=== PATIENT | female | born 1945 | race Caucasian/White ===

== ENCOUNTER → 2019-08-29 07:43 | Outpatient (BNVA) | payer MEDICARE, MEDICAID, SELFPAY | PROVIDERS: Family Provider Family Medicine; Visit Provider Nurse Practitioner Psychiatric/Mental Health | DX: F33.0 Major depressive disorder, recurrent, mild (principal) | CPT/HCPCS: 99213 ==

== ENCOUNTER → 2020-02-27 07:38 | Outpatient (BNVA) | payer MEDICARE, MEDICAID, SELFPAY | PROVIDERS: Family Provider Family Medicine; Visit Provider Nurse Practitioner Psychiatric/Mental Health | DX: F33.0 Major depressive disorder, recurrent, mild (principal) | CPT/HCPCS: 99213 ==

== ENCOUNTER → 2020-08-13 07:28 | Outpatient (BNVA) | payer MEDICARE, MEDICAID, SELFPAY | PROVIDERS: Family Provider Family Medicine; Visit Provider Nurse Practitioner Psychiatric/Mental Health | DX: F33.0 Major depressive disorder, recurrent, mild (principal) | CPT/HCPCS: 99213 ==

== ENCOUNTER 2020-11-02 12:45 | Outpatient (CLI) | payer MEDICARE, MEDICAID, SELFPAY ==
--- NOTE | 2020-11-02 12:51 | MM_ITS ---
WS: [id number] BILATERAL SCREENING DIGITAL MAMMOGRAM WITH CAD HISTORY: SCREENING COMPARISON: 08/30/2018 and 09/08/2016 Bilateral CC and MLO views submitted. Computer aided detection analyzed. Breast composition: There are scattered areas of fibroglandular density. No suspicious masses, microc alcifications or architectural distortion. Benign calcifications in each breast. MM/[place] [id number] IMPRESSION: BI-RADS: 2-Benign FOLLOW UP: 1 Year Follow-up
== END 2020-11-02 12:46 | disposition home or self-care (01) ==
LOC: RADSHAW 12:49
PROVIDERS: Family Provider Family Medicine; PCP Family Medicine; Visit Provider Family Medicine
DX: Z12.31 Encounter for screening mammogram for malignant neoplasm of breast (principal)
CPT/HCPCS: 77067

== ENCOUNTER 2020-11-30 09:10 | Observation (INO) | payer MEDICARE, MEDICAID, SELFPAY ==
[2020-11-30] VITALS (8 sets, daily range): BP systolic 107–141; BP diastolic 44–75; PULSE 75–84; RESP 16–18; TEMP 36.9–37.4; O2SAT 91–95; BMI 48.0
--- NOTE | 2020-11-30 09:21 | CT_ITS ---
WS: [id number] CT abdomen pelvis w con* [id number] REASON FOR EXAM: abd pain IV CONTRAST ADMINISTERED: 95 mL of Omnipaque 300. TOTAL EXAM DLP: 1892.[address] scans at [facility] use at least one of these dose optimization techniques: automat ed exposure control; mA and/or kV adjustment per patient size (includes targeted exams where dose is matched to clinical indication); or iterative reconstruction. FINDINGS: ABDOMEN: The spleen and pancreas are within normal limits. Mild fatty infiltration of the liver. No focal liver lesion. The gallbladder demonstrates an irregular and edematous appearing wall with hazy density in the adjac ent fat and possibly a very small amount of pericholecystic fluid. There are multiple large calculi p resent. The calculi are partially calcified. The adrenals and kidneys are unremarkable. In addition there is air in the common bile duct which extends up the biliary tract into the intrahep atic radicles of the most superior medial left lobe of the liver. In retrospect there was likely some shadowing in the left lobe of the liver that represented air within the intrahepatic bile ducts. No mass, adenopathy, focal fluid collection, or free fluid. No bowel abnormality is identified. A normal appendix is not identified. No inflammatory changes or f luid in the right lower quadrant. The abdominal wall is intact. Degenerative changes in the lumbar spine without focal lesion. PELVIS: No mass, adenopathy, focal fluid collection, or free fluid. Mild thickening of the urinary bladder wall. The urinary bladder is otherwise unremarkable. The uterus is been removed. CT/CT abdomen pelvis w con* [id number] IMPRESSION: Cholelithiasis with acute cholecystitis. Pneumobilia. Presuming no recent surgery in the ampullary region or recent ERCP this would likely be due to the recent passage of a gallbladder calculus into the GI tract. No calculus was identified in the GI tract however the gallstones are poorly calcified and would be difficult to identify in bowel unless extrem aurora large. Malignancy in the region of the ampulla could produce these findings however no mass in that region is identified.
--- NOTE | 2020-11-30 09:21 | ECG_ITS ---
[facility] ED Test Date: 2020-11-30 Pat Name: Katie Haddad Department: Room: Gender: Female Administrative Accountant: : [id number] Requested By: Miguel Robledo Order Number: [id number] Yana MD: Tamy Melendez M.D. Measurements Intervals [place] Rate: 84 P: 48 RI: 137 QRS: -18 QRSD: 97 T: 12 QT: 339 QTc: 402 Interpretive Statements SINUS RHYTHM Compared to ECG 02/20/2019 15:03:46 Incomplete right bundle-branch block no longer present Atrial abnormality no longer present ST (T wave) deviation no longer present Electronically Signed On 12-03-2020 0:18:06 CDT by Tamy Melendez M.D. [id number]
--- NOTE | 2020-11-30 09:50 | US_ITS ---
WS: [id number] ABDOMINAL ULTRASOUND LIMITED REASON FOR VISIT: abd pain TECHNIQUE: Grayscale and Doppler ultrasound examination of the abdomen. FINDINGS: Pancreas: Not visualized due to the large amount of overlying bowel gas. Abdominal aorta and IVC: Normal Liver: Liver measures 17.5 cm in length. Moderately echogenic compatible with fatty infiltration. Gallbladder: Gallbladder wall thickness measures 0.5 mm. The thickening of the gallbladder wall with a triple layer appearance compatible with edema of the gallbladder wall. There is also hyperemia of t he gallbladder wall. There are multiple large calculi in the gallbladder as well as a large amount of dependently layering debris. The common bile duct is not dilated. Questionable; small amount of taty cholecystic fluid. Right kidney: Right kidney measures 12.9 cm x 4.3 cm x 4.4 cm. Right kidney cortex measures 1.3 cm. N o mass, calculus, or hydronephrosis. No ascites. US/US gall bladder [id number] IMPRESSION: Cholelithiasis with findings indicative of acute cholecystitis.
--- NOTE | 2020-11-30 09:51 | W.ED.ABDPA2 ---
HPI - Abdominal Pain General: Chief Complaint: Abdominal Pain Stated Complaint: UPPER ABD PAIN Time Seen by Provider: 11/30/20 09:15 History of Present Illness: HPI narrative: 75-year-old female presents emergency room chronic right upper quadrant abdominal pain she had for the last 2 days. She is not had any fevers or chills she has had some nausea has had some alteration in taste. She has been very nauseous she is not had any diarrhea. She denies cough. She has not been vaccinated to this point. MD elicited complaint: abdominal pain Pertinent past history: none Onset (ago): hour(s) Pain Consistency: constant Location: Diffuse Severity: moderate Quality: cramping Radiation: none Migration to: no migration Exacerbating factors: nothing Relieving factors: nothing Associated Symptoms: Reports bloating, change in bowel habits, GI cramping, nausea and poor appetite; Denies anorexia, belching, change in stool character, chills, coffee ground emesis, constipation, diarrhea, dyspepsia, dysuria, excessive flatus, fever(s), heartburn, hematochezia, hematuria, hematemesis, fecal incontinence, loose stools, melena, syncope and vomiting Review of Systems Const: Denies: fever(s) or chills ENMT: Denies: throat pain, ear or mastoid pain, nasal discharge or nasal congestion Card: Denies: syncope Resp: Denies: dyspnea, productive cough or non-productive cough GI: Reports: nausea, bloating, GI cramping and change in bowel habits; Denies: vomiting, hematemesis, coffee ground emesis, heartburn, diarrhea, constipation, belching, excessive flatus, fecal incontinence, change in stool character, hematochezia or melena : Denies: dysuria or hematuria Skin/Breast: Denies: rash or pruritus PFSH ED PFSH: Medical History HTN (hypertension) Major depressive disorder, recurrent, mild Social History Smoking and tobacco status: never smoked Alcohol intake: never Physical Exam Const: COMMON NORMALS: no acute distress GENERAL APPEARANCE: cooperative and comfortable ORIENTATION/CONSCIOUSNESS: Yes awake, Yes oriented to person, Yes oriented to place and Yes oriented to time HENMT: COMMON NORMALS: normocephalic, atraumatic and hearing grossly normal bilaterally HEAD & SCALP: normocephalic and atraumatic Neck/C-Spine: COMMON NORMALS: no JVD Resp: COMMON NORMALS: normal respiratory effort, No retractions, No use of accessory muscles and clear to auscultation bilaterally AUSCULTATION: clear to auscultation bilaterally Cardio: COMMON NORMALS: no JVD, regular rate, regular rhythm and No murmurs present (Cardio) RATE: regular rate RHYTHM: regular rhythm GI: COMMON NORMALS: No hepatosplenomegaly present AUSCULTATION: Yes normoactive bowel sounds PALPATION: Yes Tenderness to palpation present (GI) Details: RUQ, No Guarding due to palpation present (GI) and Yes No hepatosplenomegaly present Extremity: COMMON NORMALS: normal to inspection, capillary refill normal, no clubbing, cyanosis or edema, no calf tenderness and no pedal edema Neuro: SENSORIUM/ORIENTATION: Yes oriented to person, Yes oriented to place and Yes oriented to time Skin: COMMON NORMALS: no rashes or lesions noted GENERAL SKIN EXAM: no rashes or lesions noted Course Vital Signs: Vital signs: Vital Signs Temperature 98.2 F 12/01/20 11:43 Pulse Rate 68 12/01/20 11:43 Respiratory Rate 18 12/01/20 11:43 Blood Pressure 148/81 12/01/20 11:43 Pulse Oximetry 94 12/01/20 11:43 MDM - Abdominal Pain MDM Narrative: Medical decision making narrative: Ultrasound shows signs of cholelithiasis with no dilation of the common bile duct CT still pain discussed Dr. Parra her admission orders Lab Data: Labs: Lab Results 11/30/20 11/30/20 11/30/20 Range/Units 09:52 09:52 10:05 WBC 14.7 H (4.0-10.0) 10^3/ uL RBC 4.78 (4.1-5.3) 10^6/u L Hgb 14.5 (11.5-15.3) g/dL Hct 43.3 (37.0-47.0) % MCV 90.6 (81-99) fL MCH 30.3 (28.0-34.0) pg MCHC 33.5 (30.0-36.0) g/dL RDW 13.2 (12.1-15.1) % Plt Count 192 (130-400) 10^3/c mm MPV 10.9 H (7.4-10.4) fL Neut % (Auto) 84.6 % Lymph % (Auto) 7.4 % [place] % (Auto) 7.5 % Eos % (Auto) 0.0 % Baso % (Auto) 0.3 % Neut # (Auto) 12.48 H (1.8-7.7) 10^3/u L Lymph # (Auto) 1.1 (0.8-4.8) 10^3/u L [place] # (Auto) 1.1 H (0.2-0.9) 10^3/u L Eos # (Auto) 0.0 (0.0-0.8) 10^3/u L Baso # (Auto) 0.0 (0.0-0.1) 10^3/u L Nucleated RBC % (a uto) 0 % Nucleated RBCs # 0.0 /100WBC Sodium Cancelled Potassium Cancelled Chloride Cancelled Carbon Dioxide Cancelled Anion Gap Cancelled BUN Cancelled Creatinine Cancelled GFR Calculation Cancelled Glucose Cancelled Calculated Osmolal ity Cancelled Calcium Cancelled Total Bilirubin Cancelled AST Cancelled ALT Cancelled Alkaline Phosphata se Cancelled Creatine Kinase Cancelled Total Protein Cancelled Albumin Cancelled Globulin Cancelled Lipase Cancelled Urine Color (Yellow) Urine Appearance (CLEAR) Urine pH (5-7) Ur Specific Gravit y (1.005-1.030) Urine Protein (Negative) Urine Glucose (UA) (Normal) Urine Ketones (Negative) Urine Blood (Negative) Urine Nitrate (Negative) Urine Bilirubin (Negative) Prot Sulfosalicyli c Acd (Negative) Urine Urobilinogen (Negative) mg/dL Ur Leukocyte Deisy ase (Negative) Urine RBC (0-2) /hpf Urine WBC (0-5) /hpf Ur Squamous Epith Cells (0-5) /hpf Amorphous Sediment Urine Bacteria (NONE) /hpf Urine Mucus /hpf SARS-CoV-2 Ag (Rap id) Negative (Negative) 11/30/20 11/30/20 Range/Units 10:50 11:00 WBC (4.0-10.0) 10^3/ uL RBC (4.1-5.3) 10^6/u L Hgb (11.5-15.3) g/dL Hct (37.0-47.0) % MCV (81-99) fL MCH (28.0-34.0) pg MCHC (30.0-36.0) g/dL RDW (12.1-15.1) % Plt Count (130-400) 10^3/c mm MPV (7.4-10.4) fL Neut % (Auto) % Lymph % (Auto) % [place] % (Auto) % Eos % (Auto) % Baso % (Auto) % Neut # (Auto) (1.8-7.7) 10^3/u L Lymph # (Auto) (0.8-4.8) 10^3/u L [place] # (Auto) (0.2-0.9) 10^3/u L Eos # (Auto) (0.0-0.8) 10^3/u L Baso # (Auto) (0.0-0.1) 10^3/u L Nucleated RBC % (a uto) % Nucleated RBCs # /100WBC Sodium Cancelled Potassium Cancelled Chloride Cancelled Carbon Dioxide Cancelled Anion Gap Cancelled BUN Cancelled Creatinine Cancelled GFR Calculation Cancelled Glucose Cancelled Calculated Osmolal ity Cancelled Calcium Cancelled Total Bilirubin Cancelled AST Cancelled ALT Cancelled Alkaline Phosphata se Cancelled Creatine Kinase Cancelled Total Protein Cancelled Albumin Cancelled Globulin Cancelled Lipase Cancelled Urine Color Yellow (Yellow) Urine Appearance Clear (CLEAR) Urine pH 8 H (5-7) Ur Specific Gravit y 1.005 (1.005-1.030) Urine Protein Neg (Negative) Urine Glucose (UA) Norm (Normal) Urine Ketones Negative (Negative) Urine Blood 2+ H (Negative) Urine Nitrate Negative (Negative) Urine Bilirubin Neg (Negative) Prot Sulfosalicyli c Acd Negative (Negative) Urine Urobilinogen Norm (Negative) mg/dL Ur Leukocyte Deisy ase Negative (Negative) Urine RBC 0-4 H (0-2) /hpf Urine WBC None (0-5) /hpf Ur Squamous Epith Cells 0-4 H (0-5) /hpf Amorphous Sediment Not Reportable Urine Bacteria Trace (NONE) /hpf Urine Mucus Trace /hpf SARS-CoV-2 Ag (Rap id) (Negative) Discharge Plan Discharge Patient Disposition: Admitted As Inpatient Admit Provider: Librado Parra Condition: Stable Coding Level of Care Code ED Education Program Manager for Chg Fwd Exam Comprehensive
[2020-11-30 10:02] LABS: Basophils % 0.3 %; Hematocrit 43.3 % (37.0-47.0); Hemoglobin 14.5 g/dL (11.5-15.3); Lymphocytes # 1.1 10^3/uL (0.8-4.8); Lymphocytes % 7.4 %; Mean Corpuscular HGB Conc 33.5 g/dL (30.0-36.0); Mean Corpuscular Hemoglobin 30.3 pg (28.0-34.0); Mean Corpuscular Volume 90.6 fL (81-99); Mean Platelet Volume 10.9 fL (7.4-10.4); Monocytes # 1.1 10^3/uL (0.2-0.9); Monocytes % 7.5 %; Neutrophils # 12.48 10^3/uL (1.8-7.7); Neutrophils % 84.6 %; Nucleated Red Blood Cells % 0 %; Platelet Count 192 10^3/cmm (130-400); Red Blood Count 4.78 10^6/uL (4.1-5.3); Red Cell Distribution Width 13.2 % (12.1-15.1); White Blood Count 14.7 10^3/uL (4.0-10.0)
[2020-11-30 10:55] LABS: SARS Covid-2 Antigen Negative (Negative)
[2020-11-30 11:15] LABS: Add Urine Microscopic? YES; Bilirubin Urine Neg (Negative); Blood Urine 2+ (Negative); Glucose Urine UA Norm (Normal); Ketones Urine Negative (Negative); Leukocyte Esterase Urine Negative (Negative); Nitrate Urine Negative (Negative); Protein Urine Neg (Negative); Specific Gravity, Urine 1.005 (1.005-1.030); Sulfosalicylic Acid Urine Negative (Negative); Urine Appearance Clear (CLEAR); Urine Color Yellow (Yellow); Urobilinogen Urine Norm (Negative); pH Urine 8 (5-7)
[2020-11-30 11:21] LABS: Add Urine Culture? No; Bacteria Urine TRACE /hpf; Mucus Urine TRACE /hpf; RBC Urine 0-4 /hpf (0-2); Squamous Epithelial Cell Urine 0-4 /hpf (0-5)
[2020-11-30] MEDS: sodium chlor 0.9% + KCl 20 mEq 20 MEQ/1,000 ML BAG 125 MEQ IV ×2 (12:21→22:07)
[2020-11-30] MEDS: piperacillin-tazobactam 3.375 GM in sodium chloride 0.9% (plus) 50 ML IV ×2 (12:22→18:09)
[2020-11-30] MEDS: iohexol 300 mg/mL 100 mL Btl IV (13:07)
[2020-11-30 13:51] LABS: Alanine Aminotransferase 15 U/L (0-33); Albumin Level 2.6 g/dL (3.5-5.2); Alkaline Phosphatase 62 IU/L (35-105); Blood Urea Nitrogen 9 mg/dL (8-23); Calcium 8.1 mg/dL (8.5-10.5); Carbon Dioxide 22 mmol/L (22-29); Chloride 96 mmol/L (98-107); Creatine Phosphokinase 109 U/L (26-192); Creatinine Clr Calc Pharmacy 81.4447; Globulin 4.1 g/dL (1.3-4.6); Glucose 110 mg/dL (65-115); Lipase 11 U/L (13-60); Osmolality Calculated 269 mOsm/kg (285-295); Sodium 130 mmol/L (136-145); Total Bilirubin 0.8 mg/dL (0.15-1.2); Total Protein 6.7 g/dL (6.6-8.7)
[2020-11-30 13:54] LABS: Anion Gap 16.1 (5-19); Aspartate Amino Transferase 18 U/L (0-32); Potassium 4.1 mmol/L (3.5-5.1)
--- NOTE | 2020-11-30 15:02 | PC.NURSE ---
pt transported via bed to room 253-1.
--- NOTE | 2020-11-30 16:14 | P.HP_ITS ---
Providers/Chief Complaint Admitting Physician: Librado Parra MD Primary Care Provider: Pari Grijalva MD Chief Complaint: UPPER ABD PAIN History of Present Illness Chief Complaint: Abdominal pain History of present illness:Ms Katie Haddad is a pleasant 75 year old female patient presents to the emergency department with worsening right upper quadrant abdominal pain that started yesterday associated with nausea but no vomiting, patient describes her pain is more dull aching towards the right upper quadrant and being referred to the back. She denies history of fevers chills or jaundice. Patient was told before 2 years that she required an ERCP. But unfortunately she did not go through the process as she has been worked up in the emergency department and an ultrasound of the liver and gallbladder was obtained that showed cholelithiasis with findings of acute cholecystitis with measurement of the gallbladder wall 5 mm with multiple large calculi in the gallbladder, the common bile duct is nondilated. This study was followed by CT scan of the abdomen and pelvis; Cholelithiasis with acute cholecystitis. Pneumobilia. Presuming no recent surgery in the ampullary region or recent ERCP this would likely be due to the recent passage of a gallbladder calculus into the GI tract. No calculus was identified in the GI tract however the gallstones are poorly calcified and would be difficult to identify in bowel unless extremely large. Malignancy in the region of the ampulla could produce these findings however no mass in that region is identified. Initially when I was consulted the findings of the ultrasound was shared by me later on I did realize that the CT scan findings were reported which raises concern to me about the indication for MRCP. ER team was under the impression that the patient was supposed to get an ERCP in the past but she did not, patient now tells me that she got an ERCP but she was supposed to be with her gallbladder and she did not have it. Patient currently denies abdominal pain Review of Systems General: Reports: 10 or more systems reviewed and unremarkable except in HPI and below Medications/Allergies Home Medications Medication Instructions Recorded Confirmed Last Taken Type atorvastatin 10 mg tablet 10 mg PO DAILY 02/09/20 11/30/20 11/23/20 History triamterene 37.5 1 tab PO DAILY 02/09/20 11/30/20 11/29/20 History mg-hydrochlorothiazide 25 mg tablet Wellbutrin XL 150 mg PO DAILY 0711/30/20 11/29/20 History gabapentin 100 mg PO BID 11/30/20 11/30/20 11/29/20 History montelukast 10 mg PO DAILY 11/30/20 11/30/20 11/29/20 History omeprazole 40 mg PO DAILY 11/30/20 11/30/20 11/23/20 History Allergies Allergy/AdvReac Type Severity Reaction Status Date / Time No Known Allergies Allergy Verified 11/30/20 17:07 PFSH Acute PFSH: Medical History (Updated 11/30/20 @ 17:08 by Librado Parra MD) HTN (hypertension) Major depressive disorder, recurrent, mild Social History Smoking and tobacco status: never smoked Alcohol intake: never Vitals/I&O/Wt Last Vital Signs Temp 99.4 F 11/30/20 15:46 Pulse 81 11/30/20 15:46 Resp 18 11/30/20 15:46 BP 118/67 11/30/20 15:46 Pulse Ox 94 11/30/20 15:46 Weight last 48 hrs Weight 280 lb Physical Exam Narrative: EXAM NARRATIVE: Patient is conscious alert oriented X3 BMI 48 Head and neck examination PERRLA no masses no cervical lymphadenopathy no jaundice Cardiac examination audible S1-S2 no murmurs no gallops no arrhythmias Chest is clear bilateral,abscence of Rhonchi or wheezes,no surgical emphysema Abdomen nontender nondistended soft no organomegaly guarding or rigidity/no signs of peritonitis Extremities no cyanosis no clubbing no edema Data : 11/30/20 09:52 11/30/20 13:18 A&P Assessment and plan (1) Acute cholecystitis due to biliary calculus: After history taking physical exam, reviewing the chart and interpreting the images of the ultrasound and CT scan personally, we will plan to obtain an MRCP to delineate better the underlying surgical anatomy particularly in the light of the findings of the CT scan. And according to MRI will discuss further the potential laparoscopic cholecystectom possible open during this hospitalization versus conservative measures and perform it on elective basis with having the patient on liquid protein diet for 10 days prior to downsize the volume of the liver. We will repeat labs in the morning the form of CBC and CMP Zosyn 3.375 mg IV every 8 hours Pain control Strict I's and O Assurance and education All questions have been answered and all concerns have been addressed to patient's satisfaction. Status: Acute Attestations Medical Necessity Statement*: Patient requiring observation for repeated physical examination and follow on the MRCP results Time Spent in Patient Care: 16 - 35 minutes (>than 50% of time spent in counselling and/or direct pt care on unit) . Coding Level of Care Code Acute Ultrasound Specialist for Alcides Gloria Diagnoses Acute cholecystitis due to biliary calculus K80.00
[2020-11-30] MEDS: enoxaparin 40 mg/0.4 mL Syringe SUBCUT (18:08)
[2020-12-01] MEDS: piperacillin-tazobactam 3.375 GM in sodium chloride 0.9% (plus) 50 ML IV ×3 (01:06→17:19)
[2020-12-01 02:50] LABS: Basophils % 0.3 %; Eosinophils % 0.2 %; Hematocrit 39.8 % (37.0-47.0); Lymphocytes # 1.4 10^3/uL (0.8-4.8); Lymphocytes % 10.9 %; Mean Corpuscular HGB Conc 32.7 g/dL (30.0-36.0); Mean Corpuscular Hemoglobin 30.3 pg (28.0-34.0); Mean Corpuscular Volume 92.8 fL (81-99); Monocytes # 1.3 10^3/uL (0.2-0.9); Neutrophils % 78.3 %; Nucleated Red Blood Cells % 0 %; Platelet Count 172 10^3/cmm (130-400); Red Blood Count 4.29 10^6/uL (4.1-5.3); Red Cell Distribution Width 13.2 % (12.1-15.1); White Blood Count 13.3 10^3/uL (4.0-10.0)
[2020-12-01 03:12] LABS: Alanine Aminotransferase 11 U/L (0-33); Albumin Level 2.5 g/dL (3.5-5.2); Alkaline Phosphatase 56 IU/L (35-105); Anion Gap 9.9 (5-19); Aspartate Amino Transferase 12 U/L (0-32); Blood Urea Nitrogen 9 mg/dL (8-23); Calcium 7.8 mg/dL (8.5-10.5); Carbon Dioxide 26 mmol/L (22-29); Chloride 102 mmol/L (98-107); Creatinine Clr Calc Pharmacy 81.4447; Globulin 3.6 g/dL (1.3-4.6); Glucose 120 mg/dL (65-115); Osmolality Calculated 278 mOsm/kg (285-295); Potassium 3.9 mmol/L (3.5-5.1); Sodium 134 mmol/L (136-145); Total Bilirubin 0.8 mg/dL (0.15-1.2); Total Protein 6.1 g/dL (6.6-8.7)
[2020-12-01 04:40] VITALS: BP 126/63; PULSE 77; RESP 18; TEMP 37.5; O2SAT 92
[2020-12-01] MEDS: sodium chlor 0.9% + KCl 20 mEq 20 MEQ/1,000 ML BAG 125 MEQ IV (06:48)
[2020-12-01 07:52] VITALS: BP 115/69; PULSE 67; RESP 18; TEMP 37.5; O2SAT 95
--- NOTE | 2020-12-01 08:00 | MRR_ITS ---
PROCEDURE INFORMATION: Exam: MR Abdomen Without Contrast Exam date and time: 12/01/2020 8:00 AM Age: 75 years old Clinical indication: Abdominal pain; Acute; Prior surgery; Surgery date: 6+ months; Surgery type: Hysto; Additional info: Concern of choledocholithiasis, peumobilia and questionable distal doudenopancreatic lesion TECHNIQUE: Imaging protocol: MR of the abdomen without contrast. COMPARISON: CT abdomen pelvis w con* [id number] 11/30/2020 1:01 PM FINDINGS: Liver: Liver is mildly enlarged measuring 18.3 cm. Gallbladder and bile ducts: Gallbladder wall is thickened and edematous measuring 6.8 mm. There is a small amount of pericholecystic fluid and inflammatory stranding. There are multiple stones and sludge in the gallbladder. No stones or filling defects are seen within the biliary ducts. Pancreas: Unremarkable. No ductal dilation. Spleen: Unremarkable. No splenomegaly. Adrenal glands: Unremarkable. No mass. Kidneys and ureters: Unremarkable. No solid mass. No hydronephrosis. Stomach and bowel: Visualized stomach and intestines are unremarkable. Intraperitoneal space: Small amount of free intraperitoneal fluid in the right upper quadrant abdomen. Arteries: No abdominal aortic aneurysm. Bones/joints: Unremarkable. Soft tissues: Unremarkable. MR/MR MRCP [id number] IMPRESSION: Acute cholecystitis with cholelithiasis. There is no stones or other filling defects in the biliary ducts.
--- NOTE | 2020-12-01 10:40 | P.PN_ITS ---
Subjective Subjective: Interval history: Patient overall feels better, denies abdominal pain and no acute events overnight. Trending down of leukocytosis Medications: Reviewed: Yes Vitals/I&O/Wt Last Vital Signs Temp 99.5 F 12/01/20 07:52 Pulse 67 12/01/20 07:52 Resp 18 12/01/20 07:52 BP 115/69 12/01/20 07:52 Pulse Ox 95 12/01/20 07:52 11/30/20 12/01/20 12/01/20 22:59 06:59 14:59 Intake Total 1100 / 1100 1190 / 2290 Balance 1100 / 1100 1190 / 2290 Weight last 48 hrs Weight 280 lb Weight 280 lb Physical Exam Narrative: EXAM NARRATIVE: Patient is conscious alert oriented X3 BMI 48 Head and neck examination PERRLA no masses no cervical lymphadenopathy no jaundice Abdomen nontender nondistended soft no organomegaly guarding or rigidity/no signs of peritonitis Morbidly obese Data : 12/01/20 02:43 12/01/20 02:43 A&P Assessment and plan (1) Acute cholecystitis due to biliary calculus: Repeat labs show trending down and leukocytosis and patient overall cli nically feeling well We will follow on MRCP results We will continue Zosyn 3.375 mg IV every 8 hours Pain control Based on those findings of low albumin of 2.5 and the hepatic steatosis, I do recommend to pursue conservative measures by continuing IV antibiotics and follow a trend of the leukocytosis and plan to perform an elective laparoscopic cholecystectomy possible open as an outpatient procedure in 4 to 6 weeks after discharge Strict I's and O Assurance and education All questions have been answered and all concerns have been addressed to patient's satisfaction. Status: Acute Attestations Medical Necessity Statement*: Patient requiring observation for repeated physical examination and follow on the MRCP results also patient requiring IV antimicrobial therapy. Time Spent in Patient Care: 16 - 35 minutes (>than 50% of time spent in counselling and/or direct pt care on unit) . Coding Level of Care Code Acute Electrical Plumbing Supervisor for Alcides Gloria Diagnoses Acute cholecystitis due to biliary calculus K80.00
[2020-12-01 11:43] VITALS: BP 148/81; PULSE 68; RESP 18; TEMP 36.8; O2SAT 94
[2020-12-01] MEDS: sodium chlor 0.9% + KCl 20 mEq 20 MEQ/1,000 ML BAG 75 MEQ IV (15:34)
[2020-12-01 15:56] VITALS: BP 137/79; PULSE 76; RESP 18; TEMP 36.8; O2SAT 94
[2020-12-01] MEDS: enoxaparin 40 mg/0.4 mL Syringe SUBCUT (17:19)
[2020-12-01 20:00] VITALS: BP 146/79; PULSE 78; RESP 17; TEMP 36.9; O2SAT 94
[2020-12-02] VITALS: BP 118/75; PULSE 74; RESP 16; TEMP 36.6; O2SAT 94
[2020-12-02] MEDS: piperacillin-tazobactam 3.375 GM in sodium chloride 0.9% (plus) 50 ML IV ×2 (02:22→10:25)
[2020-12-02 04:00] VITALS: BP 148/85; PULSE 76; RESP 17; TEMP 36.7; O2SAT 95
[2020-12-02] MEDS: sodium chlor 0.9% + KCl 20 mEq 20 MEQ/1,000 ML BAG 75 MEQ IV (04:59)
[2020-12-02 08:00] VITALS: BP 146/77; PULSE 73; RESP 17; TEMP 36.9; O2SAT 98
[2020-12-02 08:40] LABS: Basophils % 0.5 %; Eosinophils # 0.1 10^3/uL (0.0-0.8); Eosinophils % 1.6 %; Hematocrit 42.5 % (37.0-47.0); Hemoglobin 13.4 g/dL (11.5-15.3); Lymphocytes # 1.3 10^3/uL (0.8-4.8); Lymphocytes % 16.1 %; Mean Corpuscular HGB Conc 31.5 g/dL (30.0-36.0); Mean Corpuscular Volume 95.1 fL (81-99); Mean Platelet Volume 10.9 fL (7.4-10.4); Monocytes # 0.8 10^3/uL (0.2-0.9); Monocytes % 9.5 %; Nucleated Red Blood Cells % 0 %; Platelet Count 194 10^3/cmm (130-400); Red Blood Count 4.47 10^6/uL (4.1-5.3); Red Cell Distribution Width 13.3 % (12.1-15.1); White Blood Count 7.9 10^3/uL (4.0-10.0)
[2020-12-02] MEDS: magnesium citrate Btl 296 mL 150 ML PO (09:47)
[2020-12-02 11:28] VITALS: BP 106/60; PULSE 75; RESP 17; TEMP 36.7; O2SAT 97
--- NOTE | 2020-12-02 11:32 | P.PN_ITS ---
Subjective Subjective: Interval history: Patient was seen and examined and overall feels well and tolerating p.o. intake. MRCP was done and showed acute calculus cholecystitis and no evidence of choledocholithiasis. Patient agreed to proceed with elective and interval laparoscopic cholecystectomy down the road Medications: Reviewed: Yes Vitals/I&O/Wt Last Vital Signs Temp 98.0 F 12/02/20 11:28 Pulse 75 12/02/20 11:28 Resp 17 12/02/20 11:28 BP 106/60 12/02/20 11:28 Pulse Ox 97 12/02/20 11:28 12/01/20 12/02/20 12/02/20 22:59 06:59 14:59 Intake Total 170 / 1530 1050 / 2580 360 / 360 Balance 170 / 1530 1050 / 2580 360 / 360 Weight last 48 hrs Weight 280 lb Physical Exam Narrative: EXAM NARRATIVE: Patient is conscious alert oriented X3 BMI 48 Head and neck examination PERRLA no masses no cervical lymphadenopathy no jaundice Abdomen nontender nondistended soft no organomegaly guarding or rigidity/no signs of peritonitis Morbidly Data : 12/02/20 08:22 12/01/20 02:43 A&P Assessment and plan (1) Acute cholecystitis due to biliary calculus: We will continue conservative measures as patient showing trending leukocytosis to normalization We will advance to full liquid diet and if patient continues to do well we will plan to discharge home today and follow-up with me in the office for interval cholecystectomy Assurance and education All questions have been answered and all concerns have been addressed to patient's satisfaction. Status: Acute Attestations Medical Necessity Statement*: Patient required observation status for IV antibiotic therapy and repeated physical examination Time Spent in Patient Care: (>than 50% of time spent in counselling and/or direct pt care on unit) . Coding Level of Care Code Acute Chief Innovation Officer for Alcides Gloria Diagnoses Acute cholecystitis due to biliary calculus K80.00
--- NOTE | 2020-12-02 13:35 | P.SS_ITS ---
Short Stay Summary Providers Date of Admit/Discharge: 12/02/20 Attending Provider: Librado Parra MD Primary Care Provider: Pari Grijalva MD Chief Complaint: UPPER ABD PAIN HPI History of Present Illness Katie Haddad is a 75 year old female presented to the emergency department with worsening right upper quadrant abdominal pain, and was found to have acute calculus cholecystitis yet per food technology teacher there was a question jaime about soft tissue shadow of the gallbladder, also the CT scan of the abdomen and pelvis showed pneumobilia with concern about a potential lesion at the ampulla, yet there was no mass found in the region per CT. Patient undergone an MRCP per my request that showed; Acute cholecystitis with cholelithiasis. There is no stones or other filling defects in the biliary ducts. Patient was admitted on my service for IV antimicrobial therapy and blood work showed that she has leukocytosis and albumin of 2.5 Review of Systems General: Reports: 10 or more systems reviewed and unremarkable except in HPI and below Home Meds/Allergies Home Medications and Allergies Home Medications Medication Instructions Recorded Confirmed Type atorvastatin 10 mg tablet 10 mg PO DAILY 02/09/20 11/30/20 History triamterene 37.5 1 tab PO DAILY 02/09/20 11/30/20 History mg-hydrochlorothiazide 25 mg tablet Wellbutrin XL 150 mg PO DAILY 11/30/20 11/30/20 History gabapentin 100 mg PO BID 11/30/20 11/30/20 History montelukast 10 mg PO DAILY 11/30/20 11/30/20 History omeprazole 40 mg PO DAILY 11/30/20 11/30/20 History Allergies Allergy/AdvReac Type Severity Reaction Status Date / Time No Known Allergies Allergy Verified 11/30/20 17:07 PFSH Acute PFSH: Medical History HTN (hypertension) Major depressive disorder, recurrent, mild Social History Smoking and tobacco status: never smoked Alcohol intake: never Vitals/I&O/Wt Last Vital Signs Temp 98.0 F 12/02/20 11:28 Pulse 75 12/02/20 11:28 Resp 17 12/02/20 11:28 BP 106/60 12/02/20 11:28 Pulse Ox 97 12/02/20 11:28 12/01/20 12/02/20 12/02/20 22:59 06:59 14:59 Intake Total 170 / 1530 1050 / 2580 360 / 360 Balance 170 / 1530 1050 / 2580 360 / 360 Weight last 48 hrs Weight 280 lb Physical Exam Narrative: EXAM NARRATIVE: Patient is conscious alert oriented X3 BMI 48 Head and neck examination PERRLA no masses no cervical lymphadenopathy no jaundice Abdomen nontender nondistended soft no organomegaly guarding or rigidity/no signs of peritonitis Morbidly Hospital Course Hospital Course Patient overall did well and responded appropriately to conservative management. Continues to have stable vital signs and running no fevers and maintained adequate urine output, trending down of WBC count and normalization. Tolerated p.o. intake and was advanced to full liquid diet without complications. Discharge Summary Patient met the appropriate criteria for discharge home today and she was counseled for laparoscopic cholecystectomy during the same hospitalization versus interval surgery. And because her understanding and education about her low albumin of 2.5 and her hepatic steatosis status. Patient elected to proceed with interval cholecystectomy to maximize her medically and to place her on liquid protein diet for 10 days prior to surgery to downsize the volume of the liver for safer intervention. Patient will be discharged home today on Augmentin 875 mg twice daily with the plan to follow-up with me in the office in 10 days. Patient was educated about the importance paralyze any worsening symptoms needs to come back to the ER for potential management. The plan of care has been discussed with the patient the results of her nursing staff Terrie and she agreed accordingly. SSS Data Data Completed and Pending: Completed Studies During Hospitalization Category Date Time Status CT abdomen pelvis w con* [id number] Stat Cat Scan 11/30/20 09:21 Completed MR MRCP [id number] Rou siddharth MRI 12/01/20 08:00 Completed US gall bladder 7 [id number] Stat Ultrasound 11/30/20 09:50 Completed Diagnoses at Discharge Discharge Diagnosis (1) Acute cholecystitis due to biliary calculus: Status: Resolved Discharge Plan Discharge Patient Disposition: Home Condition: Stable Prescriptions: New Augmentin 875-125 mg tablet 1 tab PO Q12H Qty: 20 RF: 0 Continued triamterene-hydrochlorothiazid 37.5-25 mg tablet 1 tab PO DAILY RF: 0 atorvastatin [Lipitor] 10 mg tablet 10 mg PO DAILY RF: 0 omeprazole 40 mg Capsule,Delayed Release(Dr/Ec) 40 mg PO DAILY RF: 0 montelukast 10 mg tablet 10 mg PO DAILY RF: 0 gabapentin 100 mg capsule 100 mg PO BID RF: 0 Wellbutrin XL 150 mg tablet extended release 24 hr 150 mg PO DAILY RF: 0 Discharge Orders: Discharge Order (Routine); Ordered 12/02/20 Ordered By: Librado Parra Referrals: Librado Parra MD [Physician] - (Return to surgery office in 10 days) Discharge Diet: As Directed and Full LIquid Discharge Activity: Increase activity as tolerated Patient Instructions: Cholecystitis (DC), Low Fat Diet (DC), Opioid Safety Activity Restrictions/Additional Instructions: 1-Patient can have full liquid diet today and tomorrow and starting Thursday advance to soft GI low-fat diet. 2-return to surgery office in 10 days 3-avoid fried or greasy food 4-return to the ER for worsening symptoms of abdominal pain, fevers, chills nausea or vomiting 5-continue antibiotics for 10 days as prescribed Attestations Medical Necessity Statement*: Patient required observation status for IV an tibiotics and repeated physical examination Time Spent in Patient Care*: greater than 30 min Specific Discharge Activities: Specific discharge activities: educating patient and educating and/or supporting family/caregiver Status at Discharge: Cognitive status at discharge: cognitively intact , Behavioral status at discharge: cooperative , Functional status at discharge: independent ambulation Overall status at discharge: patient is progressing back to baseline Quality Metrics Clinical Quality Measures: During this hospital stay, did patient experience: None Coding Level of Care Code Acute Hazardous Waste Management Specialist for Alcides Gloria Diagnoses Acute cholecystitis due to biliary calculus K80.00
[2020-12-02 13:52] VITALS: BP 106/60; PULSE 75; RESP 17; TEMP 36.7; O2SAT 97
== END 2020-12-02 14:07 | disposition home or self-care (01) ==
LOC: ER 09:16 → MEDSURG 15:02
PROVIDERS: Admitting Provider Surgery; Emergency Provider Family Medicine; PCP Family Medicine; Visit Provider Surgery
DX: K80.00 Calculus of gallbladder with acute cholecystitis without obstruction (principal); I10 Essential (primary) hypertension; F33.9 Major depressive disorder, recurrent, unspecified
CPT/HCPCS: 36415; 74177; 74181; 76705; 80053; 81001; 82550; 83690; 85025; 87426; 93005; 96365; 96366; 96367; 96372; 99285; G0378; J0610; J1650; J2543; Q9967

== ENCOUNTER 2020-12-16 15:23 | Inpatient (IN) | payer MEDICARE, MEDICAID, SELFPAY ==
[2020-12-16 15:31] VITALS: BP 162/84; PULSE 94; RESP 19; TEMP 37.3; O2SAT 96; BMI 47.9
--- NOTE | 2020-12-16 16:08 | W.ED.ABDPA2 ---
Documented by User: Warren Valdez MD 12/17/20 13:17 HPI - Abdominal Pain General: Chief Complaint: Abdominal Pain Stated Complaint: BURNING AND STINGING AND CHILLS/ACHES Time Seen by Provider: 12/16/20 16:06 History of Present Illness: HPI narrative: Ms Haddad is a 75-year-old lady with history of recent hospitalization for cholecystitis who presents emergency department due to abdominal pain. History is somewhat limited as the patient appears mildly confused. Initially she reported abdominal pain, dysuria, burning with urination, urgency, generalized malaise, and nausea and vomiting. She subsequently was confused when I readdressed this issue and reported right upper quadrant abdominal pain. No focal neurologic deficits reported. Her symptoms are worse with movement but did not go away with rest. They are sharp and aching in nature. She has had associated poor p.o. intake. The intensity of symptoms is moderate to severe. No other specific changes in health, provoking, a exacerbating factors identified. Review of Systems Narrative: ROS limited by mental status and changing patient report PFSH ED PFSH: Medical History Acute cholecystitis due to biliary calculus HTN (hypertension) Major depressive disorder, recurrent, mild Social History Smoking and tobacco status: never smoked Alcohol intake: never Physical Exam Narrative: EXAM NARRATIVE: GENERAL/CONSTITUTIONAL - chronically ill-appearing. Eyes - PERRL, no conjunctival injection ENMT - Atraumatic external nose and ears. Moist mucous membranes NECK - supple. trachea midline CARDIOVASCULAR - regular rate and rhythm. Peripheral pulses 2+ and equal RESPIRATORY -clear to auscultation bilaterally. No retractions or accessory muscle use. ABDOMEN/GI - Diffusely tender with RUQ tenderness to light palpation and percussion. MSK - Extremities without obvious deformity or tenderness to palpation SKIN - Warm, Dry NEURO - alert but somewhat confused. No focal deficits. Moves all extremities equally. PSYCH - Impaired congnition and memory Course ED course: - Patient was seen and evaluated by me at bedside - Patient placed on cardiac monitors, IV access obtained - Initial evaluation notable for mildly ill appearance, this is a challenging situation given patient's mental status which is altered without clear baseline in the absence of supplemental history. She does have abdominal tenderness to palpation. - Labs and imaging obtained and reviewed - Fluids, antibiotics ordered - Labs notable for leukocytosis -Patient care handed off to overnight ED physician Dr. hCua pending completion of CT scan and planned admission for the hospital. Vital Signs: Vital signs: Vital Signs Temperature 98.8 F 12/17/20 12:00 Pulse Rate 84 12/17/20 12:00 Respiratory Rate 15 12/17/20 12:00 Blood Pressure 180/127 12/17/20 12:00 Pulse Oximetry 92 12/17/20 12:00 MDM - Abdominal Pain Medical Records: Attestation: I reviewed the patient's medical records. Lab Data: Attestation: I reviewed the patient's lab results. Labs: Lab Results 12/16/20 12/16/20 12/16/20 Range/Units 16:35 16:35 16:35 WBC 19.3 H (4.0-10.0) 10^3/ uL RBC 5.05 (4.1-5.3) 10^6/u L Hgb 14.9 (11.5-15.3) g/dL Hct 45.5 (37.0-47.0) % MCV 90.1 (81-99) fl MCH 29.5 (28.0-34.0) pg MCHC 32.7 (30.0-36.0) g/dL RDW 12.9 (12.1-15.1) % Plt Count 221 (130-400) 10^3/c mm MPV 11.3 H (7.4-10.4) fL Neut % (Auto) 91.1 % Lymph % (Auto) 2.3 % Wolfe % (Auto) 5.9 % Eos % (Auto) 0.0 % Baso % (Auto) 0.3 % Neut # (Auto) 17.58 H (1.8-7.7) 10^3/u L Lymph # (Auto) 0.4 L (0.8-4.8) 10^3/u L Wolfe # (Auto) 1.1 H (0.2-0.9) 10^3/u L Eos # (Auto) 0.0 (0.0-0.8) 10^3/u L Baso # (Auto) 0.1 (0.0-0.1) 10^3/u L Nucleated RBC % (a uto) 0 % Nucleated RBCs # 0.0 /100WBC Sodium 133 L (136-145) mmol/L Potassium 4.0 (3.5-5.1) mmol/L Chloride 97 L (98-107) mmol/L Carbon Dioxide 27 (22-29) mmol/L Anion Gap 13.0 (5-19) BUN 9 (8-23) mg/dL Creatinine 0.6 (0.5-0.9) mg/dL GFR Calculation Not Reportable Glucose 151 H (65-115) mg/dL Calculated Osmolal ity 278 L (285-295) mOsm/k g Lactate 1.4 (0.5-2.2) mmol/L Calcium 8.6 (8.5-10.5) mg/dL Total Bilirubin 0.6 (0.15-1.2) mg/dL AST 23 (0-32) U/L ALT 24 (0-33) U/L Alkaline Phosphata se 69 (35-105) IU/L Total Protein 7.2 (6.6-8.7) g/dL Albumin 3.4 L (3.5-5.2) g/dL Globulin 3.8 (1.3-4.6) g/dL Lipase 13 (13-60) U/L Urine Color (Yellow) Urine Appearance (CLEAR) Urine pH (5-7) Ur Specific Gravit y (1.005-1.030) Urine Protein (Negative) Urine Glucose (UA) (Normal) Urine Ketones (Negative) Urine Blood (Negative) Urine Nitrate (Negative) Urine Bilirubin (Negative) Urine Urobilinogen (Negative) mg/dL Ur Leukocyte Deisy ase (Negative) Urine RBC (0-2) /hpf Urine WBC (0-5) /hpf Ur Squamous Epith Cells (0-5) /hpf Amorphous Sediment Urine Bacteria (NONE) /hpf 12/16/20 Range/Units 17:30 WBC (4.0-10.0) 10^3/ uL RBC (4.1-5.3) 10^6/u L Hgb (11.5-15.3) g/dL Hct (37.0-47.0) % MCV (81-99) fl MCH (28.0-34.0) pg MCHC (30.0-36.0) g/dL RDW (12.1-15.1) % Plt Count (130-400) 10^3/c mm MPV (7.4-10.4) fL Neut % (Auto) % Lymph % (Auto) % Wolfe % (Auto) % Eos % (Auto) % Baso % (Auto) % Neut # (Auto) (1.8-7.7) 10^3/u L Lymph # (Auto) (0.8-4.8) 10^3/u L Wolfe # (Auto) (0.2-0.9) 10^3/u L Eos # (Auto) (0.0-0.8) 10^3/u L Baso # (Auto) (0.0-0.1) 10^3/u L Nucleated RBC % (a uto) % Nucleated RBCs # /100WBC Sodium (136-145) mmol/L Potassium (3.5-5.1) mmol/L Chloride (98-107) mmol/L Carbon Dioxide (22-29) mmol/L Anion Gap (5-19) BUN (8-23) mg/dL Creatinine (0.5-0.9) mg/dL GFR Calculation Glucose (65-115) mg/dL Calculated Osmolal ity (285-295) mOsm/k g Lactate (0.5-2.2) mmol/L Calcium (8.5-10.5) mg/dL Total Bilirubin (0.15-1.2) mg/dL AST (0-32) U/L ALT (0-33) U/L Alkaline Phosphata se (35-105) IU/L Total Protein (6.6-8.7) g/dL Albumin (3.5-5.2) g/dL Globulin (1.3-4.6) g/dL Lipase (13-60) U/L Urine Color Yellow (Yellow) Urine Appearance Clear (CLEAR) Urine pH 7 (5-7) Ur Specific Gravit y 1.010 (1.005-1.030) Urine Protein Neg (Negative) Urine Glucose (UA) Norm (Normal) Urine Ketones 1+ H (Negative) Urine Blood 2+ H (Negative) Urine Nitrate Negative (Negative) Urine Bilirubin Neg (Negative) Urine Urobilinogen Norm (Negative) mg/dL Ur Leukocyte Deisy ase Negative (Negative) Urine RBC 5-10 H (0-2) /hpf Urine WBC Rare (0-5) /hpf Ur Squamous Epith Cells None (0-5) /hpf Amorphous Sediment Not Reportable Urine Bacteria Trace (NONE) /hpf Discharge Plan Discharge Patient Disposition: Admitted As Inpatient Admit Provider: Chandu Walton Clinical Impression: Acute cholecystitis Condition: Stable Coding Level of Care Code ED Educational Administration Teacher for Chg Fwd Documented by User: Warner Chua DO 12/16/20 20:41 HPI - Abdominal Pain General: Chief Complaint: Abdominal Pain Stated Complaint: BURNING AND STINGING AND CHILLS/ACHES Time Seen by Provider: 12/16/20 16:06 PFSH ED PFSH: Medical History Acute cholecystitis due to biliary calculus HTN (hypertension) Major depressive disorder, recurrent, mild Social History Smoking and tobacco status: never smoked Alcohol intake: never Course Consultations: Consultation #1: quita Time: 19:25 Vital Signs: Vital signs: Vital Signs Temperature 98.8 F 12/17/20 12:00 Pulse Rate 84 12/17/20 12:00 Respiratory Rate 15 12/17/20 12:00 Blood Pressure 180/127 12/17/20 12:00 Pulse Oximetry 92 12/17/20 12:00 MDM - Abdominal Pain MDM Narrative: Medical decision making narrative: 75-year-old female checked out to me by Dr. valdez at shift change. This lady has leukocytosis of 19 with left shift. Her liver enzymes are normal. Her bilirubin is normal. She has findings consistent with cholecystitis on CT and pneumobilia, similar to her prior CT on prior admission for cholecystitis. Spoke with surgery. Recommendations are IV fluids, IV antibiotics, repeat labs in the morning and he will see her at that point. Lab Data: Labs: Lab Results 12/16/20 12/16/20 12/16/20 Range/Units 16:35 16:35 16:35 WBC 19.3 H (4.0-10.0) 10^3/ uL RBC 5.05 (4.1-5.3) 10^6/u L Hgb 14.9 (11.5-15.3) g/dL Hct 45.5 (37.0-47.0) % MCV 90.1 (81-99) fl MCH 29.5 (28.0-34.0) pg MCHC 32.7 (30.0-36.0) g/dL RDW 12.9 (12.1-15.1) % Plt Count 221 (130-400) 10^3/c mm MPV 11.3 H (7.4-10.4) fL Neut % (Auto) 91.1 % Lymph % (Auto) 2.3 % Wolfe % (Auto) 5.9 % Eos % (Auto) 0.0 % Baso % (Auto) 0.3 % Neut # (Auto) 17.58 H (1.8-7.7) 10^3/u L Lymph # (Auto) 0.4 L (0.8-4.8) 10^3/u L Wolfe # (Auto) 1.1 H (0.2-0.9) 10^3/u L Eos # (Auto) 0.0 (0.0-0.8) 10^3/u L Baso # (Auto) 0.1 (0.0-0.1) 10^3/u L Nucleated RBC % (a uto) 0 % Nucleated RBCs # 0.0 /100WBC Sodium 133 L (136-145) mmol/L Potassium 4.0 (3.5-5.1) mmol/L Chloride 97 L (98-107) mmol/L Carbon Dioxide 27 (22-29) mmol/L Anion Gap 13.0 (5-19) BUN 9 (8-23) mg/dL Creatinine 0.6 (0.5-0.9) mg/dL GFR Calculation Not Reportable Glucose 151 H (65-115) mg/dL Calculated Osmolal ity 278 L (285-295) mOsm/k g Lactate 1.4 (0.5-2.2) mmol/L Calcium 8.6 (8.5-10.5) mg/dL Total Bilirubin 0.6 (0.15-1.2) mg/dL AST 23 (0-32) U/L ALT 24 (0-33) U/L Alkaline Phosphata se 69 (35-105) IU/L Total Protein 7.2 (6.6-8.7) g/dL Albumin 3.4 L (3.5-5.2) g/dL Globulin 3.8 (1.3-4.6) g/dL Lipase 13 (13-60) U/L Urine Color (Yellow) Urine Appearance (CLEAR) Urine pH (5-7) Ur Specific Gravit y (1.005-1.030) Urine Protein (Negative) Urine Glucose (UA) (Normal) Urine Ketones (Negative) Urine Blood (Negative) Urine Nitrate (Negative) Urine Bilirubin (Negative) Urine Urobilinogen (Negative) mg/dL Ur Leukocyte Deisy ase (Negative) Urine RBC (0-2) /hpf Urine WBC (0-5) /hpf Ur Squamous Epith Cells (0-5) /hpf Amorphous Sediment Urine Bacteria (NONE) /hpf / Range/Units 17:30 WBC (4.0-10.0) 10^3/ uL RBC (4.1-5.3) 10^6/u L Hgb (11.5-15.3) g/dL Hct (37.0-47.0) % MCV (81-99) fl MCH (28.0-34.0) pg MCHC (30.0-36.0) g/dL RDW (12.1-15.1) % Plt Count (130-400) 10^3/c mm MPV (7.4-10.4) fL Neut % (Auto) % Lymph % (Auto) % Wolfe % (Auto) % Eos % (Auto) % Baso % (Auto) % Neut # (Auto) (1.8-7.7) 10^3/u L Lymph # (Auto) (0.8-4.8) 10^3/u L Wolfe # (Auto) (0.2-0.9) 10^3/u L Eos # (Auto) (0.0-0.8) 10^3/u L Baso # (Auto) (0.0-0.1) 10^3/u L Nucleated RBC % (a uto) % Nucleated RBCs # /100WBC Sodium (136-145) mmol/L Potassium (3.5-5.1) mmol/L Chloride (98-107) mmol/L Carbon Dioxide (22-29) mmol/L Anion Gap (5-19) BUN (8-23) mg/dL Creatinine (0.5-0.9) mg/dL GFR Calculation Glucose (65-115) mg/dL Calculated Osmolal ity (285-295) mOsm/k g Lactate (0.5-2.2) mmol/L Calcium (8.5-10.5) mg/dL Total Bilirubin (0.15-1.2) mg/dL AST (0-32) U/L ALT (0-33) U/L Alkaline Phosphata se (35-105) IU/L Total Protein (6.6-8.7) g/dL Albumin (3.5-5.2) g/dL Globulin (1.3-4.6) g/dL Lipase (13-60) U/L Urine Color Yellow (Yellow) Urine Appearance Clear (CLEAR) Urine pH 7 (5-7) Ur Specific Gravit y 1.010 (1.005-1.030) Urine Protein Neg (Negative) Urine Glucose (UA) Norm (Normal) Urine Ketones 1+ H (Negative) Urine Blood 2+ H (Negative) Urine Nitrate Negative (Negative) Urine Bilirubin Neg (Negative) Urine Urobilinogen Norm (Negative) mg/dL Ur Leukocyte Deisy ase Negative (Negative) Urine RBC 5-10 H (0-2) /hpf Urine WBC Rare (0-5) /hpf Ur Squamous Epith Cells None (0-5) /hpf Amorphous Sediment Not Reportable Urine Bacteria Trace (NONE) /hpf Discharge Plan Discharge Patient Disposition: Admitted As Inpatient Admit Provider: Chandu Walton Clinical Impression: Acute cholecystitis Condition: Stable Coding Level of Care Code ED Educational Administration Teacher for Alcides Gloria
--- NOTE | 2020-12-16 16:17 | CTR_ITS ---
PROCEDURE INFORMATION: Exam: CT Head Without Contrast Exam date and time: 12/16/2020 4:17 PM Age: 75 years old Clinical indication: Altered mental status/memory loss; Additional info: AMS TECHNIQUE: Imaging protocol: Computed tomography of the head without contrast. Radiation optimization: All CT scans at this facility use at least one of these dose optimization techniques: automated exposure control; mA and/or kV adjustment per patient size (includes targeted exams where dose is matched to clinical indication); or iterative reconstruction. COMPARISON: No relevant prior studies available. RADIATION DOSE METRICS: Total DLP (mGy-cm): 968.07 FINDINGS: Brain: There is diffuse cerebral atrophy present, consistent with this patient's age. Benign globus pallidus calcifications are present. Periventricular and subcortical white matter low densities are present which at this age likely represent microvascular ischemic change. No evidence for large acute ischemic infarction. Please note acute ischemia can be occult by head CT. Cerebral ventricles: No ventriculomegaly. Paranasal sinuses: Visualized sinuses are unremarkable. No fluid levels. Mastoid air cells: Visualized mastoid air cells are well aerated. Auditory system: There is cerumen in the right external auditory canal. Vasculature: Calcified plaque is present within the carotid siphons. Bones/joints: Hyperostosis frontalis. Soft tissues: Unremarkable. CT/CT head wo con* [id number] IMPRESSION: There are senescent changes of the brain as described above. No evidence for large acute ischemic infarction or acute intracranial injury. Radiation Dose CTDIVOL = (mGy): DLP = 968.07 (mGy-cm)
--- NOTE | 2020-12-16 16:17 | XRR_ITS ---
PROCEDURE INFORMATION: Exam: XR Chest Exam date and time: 12/16/2020 4:17 PM Age: 75 years old Clinical indication: Other: AMS; Additional info: Right shoulder pain, AMS TECHNIQUE: Imaging protocol: XR of the chest. Views: 1 view. COMPARISON: MR MRCP [id number] 12/01/2020 9:06 AM FINDINGS: Lungs: Mild atelectasis or scarring in the left lung base. The lungs are otherwise clear. Pleural spaces: Unremarkable. No pleural effusion. No pneumothorax. Heart/Mediastinum: Unremarkable. No cardiomegaly. Bones/joints: Unremarkable. XR/XR chest 1V portable [id number] IMPRESSION: No acute findings.
--- NOTE | 2020-12-16 16:17 | CTR_ITS ---
PROCEDURE INFORMATION: Exam: CT Abdomen And Pelvis With Contrast Exam date and time: 12/16/2020 4:17 PM Age: 75 years old Clinical indication: Abdominal pain; Localized; Right upper quadrant (ruq); Additional info: Ruq abdominal pain TECHNIQUE: Imaging protocol: Computed tomography of the abdomen and pelvis with contrast. Radiation optimization: All CT scans at this facility use at least one of these dose optimization techniques: automated exposure control; mA and/or kV adjustment per patient size (includes targeted exams where dose is matched to clinical indication); or iterative reconstruction. Contrast material: OMNI 300; Contrast volume: 95 ml; Contrast route: INTRAVENOUS (IV); COMPARISON: MR MRCP [id number] 12/01/2020 9:06 AM RADIATION DOSE METRICS: Total DLP (mGy-cm): 1928.3 FINDINGS: Lungs: 10 mm right middle lobe nodule. Multiple left major fissure perifissural nodules measuring up to 8 mm. Liver: Normal. No mass. Gallbladder and bile ducts: Multiple calcified stones in the gallbladder. Mild gallbladder wall edema. Pneumobilia in the extrahepatic bile ducts and left liver lobe ducts. Mild pericholecystic fat stranding. Pancreas: Normal. No ductal dilation. Spleen: Normal. No splenomegaly. Adrenal glands: Normal. No mass. Kidneys and ureters: Normal. No hydronephrosis. Stomach and bowel: Diverticulosis of the left colon. No diverticulitis. The stomach and small bowel are unremarkable. No obstruction. Appendix: The appendix is visualized and is normal. Intraperitoneal space: Mild pelvic ascites. No free air. Vasculature: Arterial calcified plaque. No aneurysm. Lymph nodes: Unremarkable. No enlarged lymph nodes. Urinary bladder: Unremarkable as visualized. Reproductive: Unremarkable as visualized. Bones/joints: Degenerative spine. No fracture. Soft tissues: Posterior lumbar subcutaneous fat edema. CT/CT abdomen pelvis w con* [id number] IMPRESSION: 1. Cholelithiasis and findings consistent with acute cholecystitis. Follow-up with ultrasound is recommended. 2. Pneumobilia which could relate to prior sphincterotomy. If the patient has not had a sphincterotomy, cholangitis with gas-forming organism is not excluded. 3. Pulmonary nodules measuring up to 10 mm. For patients at low risk (minimal or absent history of smoking and of other known risk factors), recommend CT Chest at 3-6 months, then consider CT Chest at 18-24 months. For patients at high risk (history of smoking or of other known risk factors), recommend CT Chest at 3-6 months, then CT Chest at 18-24 months. (Reference: Cindy) References: Cindy Flanagan et al. Guidelines for Management of Incidental Pulmonary Nodules Detected on CT Images: From the Fleischner Society 2017. Radiology. 2017;284(1):228-243. Radiation Dose CTDIVOL = (mGy): DLP = 1928.3 (mGy-cm)
[2020-12-16] MEDS: morphine 4 mg/mL SDV 1 mL IM (16:36)
[2020-12-16] MEDS: ondansetron 2 mg/ML SDV 2 mL 4 MG IVP (16:36)
[2020-12-16] MEDS: sodium chloride 0.9% 500 ML IV (16:36)
[2020-12-16 16:57] LABS: Basophils # 0.1 10^3/uL (0.0-0.1); Basophils % 0.3 %; Hematocrit 45.5 % (37.0-47.0); Hemoglobin 14.9 g/dL (11.5-15.3); Lymphocytes # 0.4 10^3/uL (0.8-4.8); Lymphocytes % 2.3 %; Mean Corpuscular HGB Conc 32.7 g/dL (30.0-36.0); Mean Corpuscular Hemoglobin 29.5 pg (28.0-34.0); Mean Corpuscular Volume 90.1 fl (81-99); Mean Platelet Volume 11.3 fL (7.4-10.4); Monocytes # 1.1 10^3/uL (0.2-0.9); Monocytes % 5.9 %; Neutrophils # 17.58 10^3/uL (1.8-7.7); Neutrophils % 91.1 %; Nucleated Red Blood Cells % 0 %; Platelet Count 221 10^3/cmm (130-400); Red Blood Count 5.05 10^6/uL (4.1-5.3); Red Cell Distribution Width 12.9 % (12.1-15.1); White Blood Count 19.3 10^3/uL (4.0-10.0)
[2020-12-16 17:17] LABS: Lactate (Lactic Acid level) 1.4 mmol/L (0.5-2.2)
[2020-12-16 17:22] LABS: Alanine Aminotransferase 24 U/L (0-33); Albumin Level 3.4 g/dL (3.5-5.2); Alkaline Phosphatase 69 IU/L (35-105); Aspartate Amino Transferase 23 U/L (0-32); Blood Urea Nitrogen 9 mg/dL (8-23); Calcium 8.6 mg/dL (8.5-10.5); Carbon Dioxide 27 mmol/L (22-29); Chloride 97 mmol/L (98-107); Globulin 3.8 g/dL (1.3-4.6); Glucose 151 mg/dL (65-115); Lipase 13 U/L (13-60); Osmolality Calculated 278 mOsm/kg (285-295); Sodium 133 mmol/L (136-145); Total Bilirubin 0.6 mg/dL (0.15-1.2); Total Protein 7.2 g/dL (6.6-8.7)
[2020-12-16] MEDS: iohexol 300 mg/mL 100 mL Btl IV (17:49)
[2020-12-16 18:15] LABS: Add Urine Culture? No; Add Urine Microscopic? YES; Bacteria Urine TRACE /hpf; Bilirubin Urine Neg (Negative); Blood Urine 2+ (Negative); Glucose Urine UA Norm (Normal); Ketones Urine 1+ (Negative); Leukocyte Esterase Urine Negative (Negative); Nitrate Urine Negative (Negative); Protein Urine Neg (Negative); Urine Appearance Clear (CLEAR); Urine Color Yellow (Yellow); Urobilinogen Urine Norm (Negative); WBC Urine RARE /hpf (0-5); pH Urine 7 (5-7)
[2020-12-16 18:42] VITALS: BP 131/60; PULSE 93; RESP 15; O2SAT 93
[2020-12-16 19:23] VITALS: RESP 18
[2020-12-16] MEDS: piperacillin-tazobactam 4.5 GM in sodium chloride 0.9% (plus) 50 ML IV (19:23)
[2020-12-16] MEDS: morphine 4 mg/mL SDV 1 mL IVP (19:23)
[2020-12-16 21:31] VITALS: BP 137/67; PULSE 84; RESP 18; O2SAT 97
[2020-12-16 22:09] VITALS: BP 163/96; PULSE 101; RESP 16; TEMP 37; O2SAT 95
[2020-12-16 22:14] VITALS: BMI 48.4
--- NOTE | 2020-12-16 22:33 | PC.NURSE ---
i reported high pulse to nurse 101
[2020-12-16] MEDS: lactated ringers 1,000 ML 125 ML IV (23:10)
[2020-12-17] VITALS (20 sets, daily range): BP systolic 111–188; BP diastolic 52–127; PULSE 64–95; RESP 12–20; TEMP 36.3–37.6; O2SAT 90–99
[2020-12-17 03:23] LABS: Basophils % 0.2 %; Hematocrit 43.5 % (37.0-47.0); Lymphocytes # 1.3 10^3/uL (0.8-4.8); Mean Corpuscular HGB Conc 32.2 g/dL (30.0-36.0); Mean Corpuscular Hemoglobin 29.7 pg (28.0-34.0); Mean Corpuscular Volume 92.2 fl (81-99); Mean Platelet Volume 11.3 fL (7.4-10.4); Monocytes # 1.7 10^3/uL (0.2-0.9); Monocytes % 7.6 %; Neutrophils # 18.54 10^3/uL (1.8-7.7); Neutrophils % 85.7 %; Nucleated Red Blood Cells % 0 %; Platelet Count 216 10^3/cmm (130-400); Red Blood Count 4.72 10^6/uL (4.1-5.3); Red Cell Distribution Width 13.1 % (12.1-15.1); White Blood Count 21.6 10^3/uL (4.0-10.0)
[2020-12-17] MEDS: piperacillin-tazobactam 3.375 GM in sodium chloride 0.9% (plus) 100 ML IV ×3 (03:40→18:27)
[2020-12-17 04:26] LABS: Alanine Aminotransferase 19 U/L (0-33); Albumin Level 2.7 g/dL (3.5-5.2); Alkaline Phosphatase 60 IU/L (35-105); Aspartate Amino Transferase 17 U/L (0-32); Blood Urea Nitrogen 9 mg/dL (8-23); Calcium 8.5 mg/dL (8.5-10.5); Carbon Dioxide 26 mmol/L (22-29); Chloride 100 mmol/L (98-107); Globulin 3.2 g/dL (1.3-4.6); Glucose 126 mg/dL (65-115); Osmolality Calculated 278 mOsm/kg (285-295); Sodium 134 mmol/L (136-145); Total Bilirubin 0.6 mg/dL (0.15-1.2); Total Protein 5.9 g/dL (6.6-8.7)
[2020-12-17] MEDS: lactated ringers 1,000 ML 125 ML IV ×2 (05:15→14:35)
--- NOTE | 2020-12-17 08:35 | PC.NURSE ---
updated patient's daughter on surgery time of 1619 today.
[2020-12-17] MEDS: gabapentin 100 mg Capsule PO ×2 (09:30→18:27)
[2020-12-17] MEDS: buPROPion XL (24 HR) 150 mg Tablet PO (09:30)
[2020-12-17] MEDS: montelukast sodium 10 mg Tablet PO (09:31)
[2020-12-17] MEDS: pantoprazole 40 mg SDV IVP ×2 (10:04→18:22)
--- NOTE | 2020-12-17 10:06 | PC.NURSE ---
updated patient's friend Malia [phone] on patient going to surgery at 1620.
[2020-12-17 11:15] LABS: Glucose Point of Care 118 mg/dL (70-110)
--- NOTE | 2020-12-17 12:22 | US_ITS ---
WS: [id number] RIGHT UPPER QUADRANT ULTRASOUND HISTORY: Possible cystotomy tube placement. COMPARISON: 11/30/2020 There does appear to be a tract that would be accessible for cholecystotomy tube placement by ultraso und. There was a loop of colon directly over the gallbladder on a recent CT. There are changes of acute cholecystitis with stones and sludge and wall thickening. US/US gall bladder [id number] IMPRESSION: By ultrasound there does appear to be safe access into the gallbladder. Will at tempt cholecystostomy tube by CT to be sure there is no overlying bowel. Discus sed with Dr. Parra.
--- NOTE | 2020-12-17 12:24 | P.HP_ITS ---
Providers/Chief Complaint Admitting Physician: Chandu Walton MD Primary Care Provider: Pari Grijalva MD Chief Complaint: BURNING AND STINGING AND CHILLS/ACHES History of Present Illness Chief Complaint: My right side hurts History of present illness: Ktaie Haddad is a 75 year old female well-known to me from previous clinical encounters as patient was seen before for surgical con sultation for acute calculus cholecystitis, patient undergone conservative measures because of her low albumin for surgical intervention and responded well with that regard and was seen last in my office last with the plan for interval cholecystectomy. Unfortunately the patient presented to the ER yesterday with worsening abdominal pain was found to have leukocytosis of 19,000+ and surgical consultation was initiated for potential intervention. CT scan of the abdomen and pelvis was done yesterday and showed 1. Cholelithiasis and findings consistent with acute cholecystitis. Follow-up with ultrasound is recommended. 2. Pneumobilia which could relate to prior sphincterotomy. If the patient has not had a sphincterotomy, cholangitis with gas-forming organism is not excluded. 3. Pulmonary nodules measuring up to 10 mm. For patients at low risk (minimal or absent history of smoking and of other known risk factors), recommend CT Chest at 3-6 months, then consider CT Chest at 18-24 months. For patients at high risk (history of smoking or of other known risk factors), recommend CT Chest at 3-6 months, then CT Chest at 18-24 months. (Reference: Cindy) Previous MRCP was done on December 01, 2020 that showed Acute cholecystitis with cholelithiasis. There is no stones or other filling defects in the biliary ducts. Admission labs showedLeukocytosis of 19.3, hemoglobin of 14, platelet count of 221, total bilirubin of 0.6 AST of 53 and ALT of 24. And alkaline phosphatase of 69.Serum albumin 3.4 and repeat 1 today is 2.7. Review of Systems General: Reports: 10 or more systems reviewed and unremarkable except in HPI and below Medications/Allergies Home Medications Medication Instructions Recorded Confirmed Last Taken Type atorvastatin 10 mg tablet 10 mg PO DAILY MDD see pharmacy 02/09/20 12/16/20 12/04/20 History comment triamterene 37.5 1 tab PO DAILY 02/09/20 12/16/20 12/16/20 History mg-hydrochlorothiazide 25 mg tablet bupropion HCl [Wellbutrin XL] 150 mg PO DAILY 11/30/20 12/16/20 12/15/20 History gabapentin 100 mg PO BID 11/30/20 12/16/20 12/15/20 History montelukast 10 mg PO DAILY 11/30/20 12/16/20 12/15/20 History omeprazole 40 mg PO DAILY 11/30/20 12/16/20 12/15/20 History Allergies Allergy/AdvReac Type Severity Reaction Status Date / Time No Known Allergies Allergy Verified 12/16/20 15:31 PFSH Acute PFSH: Medical History Acute cholecystitis due to biliary calculus HTN (hypertension) Major depressive disorder, recurrent, mild Social History Smoking and tobacco status: never smoked Alcohol intake: never Vitals/I&O/Wt Last Vital Signs Temp 98.8 F 12/17/20 12:00 Pulse 84 12/17/20 12:00 Resp 15 12/17/20 12:00 BP 180/127 12/17/20 12:00 Pulse Ox 92 12/17/20 12:00 12/16/20 12/17/20 12/17/20 22:59 06:59 14:59 Intake Total 2191 / 2191 760.417 / 2951.417 100 / 100 Output Total 160 / 160 Balance 2191 / 2191 600.417 / 2791.417 100 / 100 Weight last 48 hrs Weight 282 lb 5 oz Weight 279 lb Physical Exam Narrative: EXAM NARRATIVE: Patient is conscious alert oriented X3 BMI 48.5 Head and neck examination PERRLA no masses no cervical lymphadenopathy no jaundice Cardiac examination audible S1-S2 no murmurs no gallops no arrhythmias Chest is clear bilateral,abscence of Rhonchi or wheezes,no surgical emphysema Abdomen right upper quadrant tenderess, positive Albert sign nondistended soft no organomegaly guarding or rigidity/no signs of peritonitis Data : 12/17/20 02:58 12/17/20 02:58 Micro: Microbiology 12/16/20 17:22 Blood Culture - Preliminary Blood SPECIMEN COLLECTED 12/16/20 16:35 Blood Culture - Preliminary Blood SPECIMEN COLLECTED A&P Assessment and plan (1) Acute cholecystitis: After thorough history physical examination and reviewing the chart and images with my personal interpretation of the CT scan of the abdomen and pelvis. I did substance abuse counselor the patient for interventional radiology to place a cholecystostomy pigtail catheter for drainage and allow us to damage control with the plan still for elective cholecystectomy. As the patient had 2 episodes within less than 3 weeks and that increases the risk of conversion to open and potential injury to the underlying biliary system. Versus gallbladder surgery in the form of laparoscopic possible open Patient agreed to proceed with the cholecystostomy tube and I did discuss the case with Dr. Amada Carey our interventional radiologist to perform this procedure. Otherwise we will continue broad-spectrum IV antibiotics Repeat labs in the morning Assurance and education All questions have been answered and all concerns have been addressed to patient's satisfaction. Status: Acute Attestations Medical Necessity Statement*: Inpatient status requiring admission past 2 midnights for IV antimicrobial therapy and potential intervention. Time Spent in Patient Care: 16 - 35 minutes (>than 50% of time spent in counselling and/or direct pt care on unit) . Coding Level of Care Code Acute Finance Broker for Alcides Gloria Diagnoses Acute cholecystitis K81.0
--- NOTE | 2020-12-17 14:02 | CT_ITS ---
[facility] HISTORY: Acute calculus cholecystitis Technique: All [facility] scans at [facility] use at least one of these dose optimization techniq ues: automated exposure control; mA and/or kV adjustment per patient size (includes targeted exams wh ere dose is matched to clinical indication); or iterative reconstruction. DLP: 520.45 mGy-cm. COMPARISON: CT 12/16/2020. Attempted cholecystotomy tube by CT. Was unable to achieve access into the gallbladder. Several times after advancing the needle blood was noted. No bile is ever visualized. Was unable to access the gal lbladder more inferiorly due due to the colon. Patient's body habitus and very mobile breathing contr ibuted to difficulty accessing the gallbladder. Patient was also coughing during this examination sofia pite sedation. After several attempts at access into the gallbladder study was terminated.
--- NOTE | 2020-12-17 14:48 | P.ANESASSM_ITS ---
Pre-Anesthetic Assessment Pre-Anesthetic Assessment: Height/Weight: Height 1.63 m Weight 128.055 kg Temp Pulse Resp BP Pulse Ox 98.8 F 84 15 133/72 92 12/17/20 12:00 12/17/20 12:00 12/17/20 12:00 12/17/20 14:05 12/17/20 12:00 Preop Diagnosis: Cholecysitis Proposed Procedure: Operation Date: 12/17/20 14:[address] Drain Placement(Not Applicable) - Amada Carey DO Operation Date: 12/17/20 15:15 Proposed Procedures p Laparoscopic Cholecystectomy(Not Applicable) - Chandu Walton MD Familial anesthetic complications: none Was Beta Pierre taken within 24 hours: N/A Was Clonidine taken within 24 hours: N/A Last intake: Intake Last Liquid Date 12/16/20 Last Liquid Time 23:35 Last Solid Date 12/15/20 Last Solid Time 17:00 Social: Social History: No alcohol and No tobacco Exam: Pre-Anes Outpt Exam: alert, oriented x 3, clear to auscultation bilaterally and regular rate & rhythm Airway: Cervical ROM: WNL MP: 2 Dentition: Other (no teeth) GI: GI: GERD Metabolic: Metabolic: Hyperlipidemia and Morbid obesity Anesthetic Plan: ASA status: 3 Anesthesia: General Risk of > 500 ml blood loss (7ml/kg in children): No Meds/Allergies Current Medications: Current Medications Generic Name Dose Route Start Last Admin Trade Name Freq PRN Reason Stop Dose Admin Bupropion HCl 150 mg 12/17/20 09:00 12/17/20 09:30 Bupropion Xl (24 Hr) 150 Mg Tablet PO 150 mg DAILY GASPER Administration Gabapentin 100 mg 12/17/20 09:00 12/17/20 09:30 Gabapentin 100 M g Capsule PO 100 mg BID GASPER Administration Lactated Ringer's 1,000 mls @ 125 m ls/hr 12/16/20 22:09 12/17/20 14:35 Lactated Ringers IV 125 mls/hr .Q8H GASPER Administration Piperacillin Sod/T azobactam 100 mls @ 25 mls/ hr 12/17/20 03:00 12/17/20 11:17 Sod 3.375 gm/ So dium Chloride IV 25 mls/hr Q8H GASPER Administration Protocol Montelukast Sodium 10 mg 12/17/20 09:00 12/17/20 09:31 Montelukast Sodi um 10 Mg Tablet PO 10 mg DAILY GASPER Administration Pantoprazole Sodiu m 40 mg 12/17/20 09:00 12/17/20 10:04 Pantoprazole 40 Mg Sdv IVP 40 mg BID GASPER Administration PFSH Anesthesia PFSH: Medical History Acute cholecystitis due to biliary calculus HTN (hypertension) Major depressive disorder, recurrent, mild Social History Smoking and tobacco status: never smoked Alcohol intake: never Data Anesthesia CBC & Chem 7: 12/17/20 02:58 12/17/20 02:58 Other Labs: Laboratory Results - last 48 hr 12/16/20 12/16/20 12/16/20 16:35 16:35 16:35 WBC 19.3 H RBC 5.05 Hgb 14.9 Hct 45.5 MCV 90.1 MCH 29.5 MCHC 32.7 RDW 12.9 Plt Count 221 MPV 11.3 H Neut % (Auto) 91.1 Lymph % (Auto) 2.3 [place] % (Auto) 5.9 Eos % (Auto) 0.0 Baso % (Auto) 0.3 Neut # (Auto) 17.58 H Lymph # (Auto) 0.4 L [place] # (Auto) 1.1 H Eos # (Auto) 0.0 Baso # (Auto) 0.1 Nucleated RBC % (auto) 0 Nucleated RBCs # 0.0 Sodium 133 L Potassium 4.0 Chloride 97 L Carbon Dioxide 27 Anion Gap 13.0 BUN 9 Creatinine 0.6 GFR Calculation Not Reportable Glucose 151 H POC Glucose Calculated Osmolality 278 L Lactate 1.4 Calcium 8.6 Total Bilirubin 0.6 AST 23 ALT 24 Alkaline Phosphatase 69 Total Protein 7.2 Albumin 3.4 L Globulin 3.8 Lipase 13 Urine Color Urine Appearance Urine pH Ur Specific [place] Urine Protein Urine Glucose (UA) Urine Ketones Urine Blood Urine Nitrate Urine Bilirubin Urine Urobilinogen Ur Leukocyte Esterase Urine RBC Urine WBC Ur Squamous Epith Cells Amorphous Sediment Urine Bacteria 12/16/20 12/17/20 12/17/20 17:30 02:58 02:58 WBC 21.6 H RBC 4.72 Hgb 14.0 Hct 43.5 MCV 92.2 MCH 29.7 MCHC 32.2 RDW 13.1 Plt Count 216 MPV 11.3 H Neut % (Auto) 85.7 Lymph % (Auto) 6.0 [place] % (Auto) 7.6 Eos % (Auto) 0.0 Baso % (Auto) 0.2 Neut # (Auto) 18.54 H Lymph # (Auto) 1.3 [place] # (Auto) 1.7 H Eos # (Auto) 0.0 Baso # (Auto) 0.0 Nucleated RBC % (auto) 0 Nucleated RBCs # 0.0 Sodium 134 L Potassium 4.0 Chloride 100 Carbon Dioxide 26 Anion Gap 12.0 BUN 9 Creatinine 0.5 GFR Calculation Not Reportable Glucose 126 H POC Glucose Calculated Osmolality 278 L Lactate Calcium 8.5 Total Bilirubin 0.6 AST 17 ALT 19 Alkaline Phosphatase 60 Total Protein 5.9 L Albumin 2.7 L Globulin 3.2 Lipase Urine Color Yellow Urine Appearance Clear Urine pH 7 Ur Specific [place] 1.010 Urine Protein Neg Urine Glucose (UA) Norm Urine Ketones 1+ H Urine Blood 2+ H Urine Nitrate Negative Urine Bilirubin Neg Urine Urobilinogen Norm Ur Leukocyte Esterase Negative Urine RBC 5-10 H Urine WBC Rare Ur Squamous Epith Cells None Amorphous Sediment Not Reportable Urine Bacteria Trace 12/17/20 10:49 WBC RBC Hgb Hct MCV MCH MCHC RDW Plt Count MPV Neut % (Auto) Lymph % (Auto) [place] % (Auto) Eos % (Auto) Baso % (Auto) Neut # (Auto) Lymph # (Auto) [place] # (Auto) Eos # (Auto) Baso # (Auto) Nucleated RBC % (auto) Nucleated RBCs # Sodium Potassium Chloride Carbon Dioxide Anion Gap BUN Creatinine GFR Calculation Glucose POC Glucose 118 H Calculated Osmolality Lactate Calcium Total Bilirubin AST ALT Alkaline Phosphatase Total Protein Albumin Globulin Lipase Urine Color Urine Appearance Urine pH Ur Specific [place] Urine Protein Urine Glucose (UA) Urine Ketones Urine Blood Urine Nitrate Urine Bilirubin Urine Urobilinogen Ur Leukocyte Esterase Urine RBC Urine WBC Ur Squamous Epith Cells Amorphous Sediment Urine Bacteria Micro: Microbiology 12/16/20 17:22 Blood Culture - Preliminary Blood SPECIMEN COLLECTED 12/16/20 16:35 Blood Culture - Preliminary Blood SPECIMEN COLLECTED Cardiac Studies: No Data to Display
[2020-12-17 15:51] LABS: INR 1.16 (0.8-1.2); Partial Thromboplastin Time 30.2 SECONDS (23.9-36.7)
[2020-12-17] MEDS: sodium chloride 0.9% 1,000 ML 30 ML IV (16:10)
--- NOTE | 2020-12-17 16:36 | SUR.PREOP ---
16:10 assumed care of patient.transport patient to CT scan for procedure. placed on O2 and library monitor.
--- NOTE | 2020-12-17 17:45 | ANE.PACU2 ---
Inpatient post-anesthesia follow up: Airway intact: Yes Vital signs: Temperature 98.6 F Pulse Rate [Monito r] 94 Pulse Rate 94 Respiratory Rate 18 Blood Pressure [Le ft Arm] 162/84 Blood Pressure 142/56 Pulse Oximetry 98 Oxygen Delivery Me thod Nasal Cannula Oxygen Flow Rate 2 Fraction of Inspir ed Oxygen Hydration adequate: Yes Nausea and vomiting: No Pain level: 3 Mental status: Baseline
[2020-12-17] MEDS: sodium chloride 0.9% 1,000 ML 100 ML IV (17:46)
[2020-12-17] MEDS: morphine 4 mg/mL SDV 1 mL IVP (17:46)
[2020-12-17 20:02] LABS: Glucose Point of Care 132 mg/dL (70-110)
[2020-12-18] VITALS (23 sets, daily range): BP systolic 114–167; BP diastolic 56–105; PULSE 76–109; RESP 14–34; TEMP 36.3–37.6; O2SAT 91–98
[2020-12-18 03:06] LABS: Basophils % 0.2 %; Hematocrit 40.9 % (37.0-47.0); Hemoglobin 13.2 g/dL (11.5-15.3); Lymphocytes # 1.2 10^3/uL (0.8-4.8); Lymphocytes % 5.4 %; Mean Corpuscular HGB Conc 32.3 g/dL (30.0-36.0); Mean Corpuscular Hemoglobin 29.7 pg (28.0-34.0); Mean Corpuscular Volume 92.1 fl (81-99); Mean Platelet Volume 11.5 fL (7.4-10.4); Monocytes # 1.3 10^3/uL (0.2-0.9); Monocytes % 5.6 %; Neutrophils # 20.15 10^3/uL (1.8-7.7); Neutrophils % 88.3 %; Nucleated Red Blood Cells % 0 %; Platelet Count 192 10^3/cmm (130-400); Red Blood Count 4.44 10^6/uL (4.1-5.3); Red Cell Distribution Width 13.2 % (12.1-15.1); White Blood Count 22.8 10^3/uL (4.0-10.0)
[2020-12-18] MEDS: piperacillin-tazobactam 3.375 GM in sodium chloride 0.9% (plus) 100 ML IV ×2 (03:09→17:34)
[2020-12-18] MEDS: sodium chloride 0.9% 1,000 ML 100 ML IV ×2 (03:10→16:46)
[2020-12-18 03:24] LABS: Alanine Aminotransferase 15 U/L (0-33); Albumin Level 2.3 g/dL (3.5-5.2); Alkaline Phosphatase 72 IU/L (35-105); Anion Gap 10.6 (5-19); Aspartate Amino Transferase 18 U/L (0-32); Blood Urea Nitrogen 10 mg/dL (8-23); Carbon Dioxide 27 mmol/L (22-29); Chloride 101 mmol/L (98-107); Globulin 3.6 g/dL (1.3-4.6); Glucose 117 mg/dL (65-115); Osmolality Calculated 280 mOsm/kg (285-295); Potassium 3.6 mmol/L (3.5-5.1); Sodium 135 mmol/L (136-145); Total Bilirubin 0.8 mg/dL (0.15-1.2); Total Protein 5.9 g/dL (6.6-8.7)
[2020-12-18 05:48] LABS: Glucose Point of Care 111 mg/dL (70-110)
--- NOTE | 2020-12-18 06:05 | P.PN_ITS ---
Subjective Subjective: Interval history: Patient was seen and examined today. Attempted interventional radiology to place a pigtail catheter yesterday, unfortunately that was not successful. Trending up of leukocytosis. Patient continues to be hemodynamically stable. Marginal urine output. Continues to have right upper quadrant abdominal pain. Medications: Reviewed: Yes Vitals/I&O/Wt Last Vital Signs Temp 98.4 F 12/18/20 03:49 Pulse 88 12/18/20 05:34 Resp 16 12/18/20 03:49 BP 128/74 12/18/20 03:49 Pulse Ox 98 12/18/20 03:49 12/17/20 12/17/20 12/18/20 14:59 22:59 06:59 Intake Total 1100 / 1100 400 / 1500 1940 / 3440 Output Total 380 / 380 Balance 1100 / 1100 400 / 1500 1560 / 3060 Weight last 48 hrs Weight 282 lb 5 oz Weight 279 lb Physical Exam Narrative: EXAM NARRATIVE: Patient is conscious alert oriented X3 BMI 48.5 Head and neck examination PERRLA no masses no cervical lymphadenopathy no jaundice Cardiac examination audible S1-S2 no murmurs no gallops no arrhythmias Chest is clear bilateral,abscence of Rhonchi or wheezes,no surgical emphysema Abdomen right upper quadrant tenderess, positive Albert sign nondistended soft no organomegaly guarding or rigidity/no signs of peritonitis Data : 12/18/20 02:23 12/18/20 02:23 Micro: Microbiology 12/16/20 17:22 Blood Culture - Preliminary Blood NEGATIVE TO DATE 12/16/20 16:35 Blood Culture - Preliminary Blood NEGATIVE TO DATE A&P Assessment and plan (1) Acute cholecystitis: Plan of care; After thorough history physical examination and reviewing the chart and images with my personal intrepreatation.I counseled the patient for laparoscopic cholecystectomy possible open today, indications risks including but not limited injury to the common bile duct and/or other viscera,that may require potential future surgical interventions including but not limited to ERCP and or laparatomy that may include Hepatobiliary surgery.Benefits and alternatives all discussed with the patient, and patient did agree to proceed accordingly. All questions have been answered and all concerns have been addressed to patient's satisfaction. Rationale was carefully and clearly discussed with the patient.Appropriate informed consent have been reviewed and signed. Patient understands that she is at high risk of conversion to open I did also had the chance to talk with patient's daughter Ayana yesterday evening on my evening rounds. And I did explain for her again the procedure and the potential risks benefits indications and alternatives. And she is aware of the surgery and indicated her approval to proceed accordingly. Status: Acute Attestations Medical Necessity Statement*: Inpatient status requiring admission past 2 midnights for IV antimicrobial therapy and perioperative care. Time Spent in Patient Care: 16 - 35 minutes (>than 50% of time spent in counselling and/or direct pt care on unit) . Coding Level of Care Code Acute Senior Data Integration Developer for Alcides Gloria Diagnoses Acute cholecystitis K81.0
--- NOTE | 2020-12-18 09:24 | PC.NURSE ---
0849 patient taken to surgery via [facility].
--- NOTE | 2020-12-18 09:35 | ANES.PAUD2 ---
Pre-Anesthetic Update Pre-Anesthetic Assessment: Date of Surgery/Procedure: 12/18/20 Preop Diagnosis: Symptomatic cholelithiasis Proposed Procedure: Operation Date: 12/17/20 14:[address] Drain Placement(Not Applicable) - Amada Carey DO Operation Date: 12/17/20 15:15 Proposed Procedures p Laparoscopic Cholecystectomy(Not Applicable) - Chandu Walton MD Operation Date: 12/18/20 10:45 Proposed Procedures p Laparoscopic Cholecystectomy(Not Applicable) - Librado Parra MD Any changes to Pre-Anesthetic Assessment?: No Last Intake: Intake Last Liquid Date 12/16/20 Last Liquid Time 23:35 Last Solid Date 12/15/20 Last Solid Time 17:00 Labs Last 48hrs: Laboratory Results - last 48 hr 12/16/20 12/16/20 12/16/20 16:35 16:35 16:35 WBC 19.3 H RBC 5.05 Hgb 14.9 Hct 45.5 MCV 90.1 MCH 29.5 MCHC 32.7 RDW 12.9 Plt Count 221 MPV 11.3 H Neut % (Auto) 91.1 Lymph % (Auto) 2.3 [place] % (Auto) 5.9 Eos % (Auto) 0.0 Baso % (Auto) 0.3 Neut # (Auto) 17.58 H Lymph # (Auto) 0.4 L [place] # (Auto) 1.1 H Eos # (Auto) 0.0 Baso # (Auto) 0.1 Nucleated RBC % (a uto) 0 Nucleated RBCs # 0.0 PT INR APTT Sodium 133 L Potassium 4.0 Chloride 97 L Carbon Dioxide 27 Anion Gap 13.0 BUN 9 Creatinine 0.6 GFR Calculation Not Reportable Glucose 151 H POC Glucose Calculated Osmolal ity 278 L Lactate 1.4 Calcium 8.6 Total Bilirubin 0.6 AST 23 ALT 24 Alkaline Phosphata se 69 Total Protein 7.2 Albumin 3.4 L Globulin 3.8 Lipase 13 Urine Color Urine Appearance Urine pH Ur Specific [place] Urine Protein Urine Glucose (UA) Urine Ketones Urine Blood Urine Nitrate Urine Bilirubin Urine Urobilinogen Ur Leukocyte [place] Urine RBC Urine WBC Ur Squamous Epith Cells Amorphous Sediment Urine Bacteria 12/16/20 12/17/20 12/17/20 17:30 02:58 02:58 WBC 21.6 H RBC 4.72 Hgb 14.0 Hct 43.5 MCV 92.2 MCH 29.7 MCHC 32.2 RDW 13.1 Plt Count 216 MPV 11.3 H Neut % (Auto) 85.7 Lymph % (Auto) 6.0 [place] % (Auto) 7.6 Eos % (Auto) 0.0 Baso % (Auto) 0.2 Neut # (Auto) 18.54 H Lymph # (Auto) 1.3 [place] # (Auto) 1.7 H Eos # (Auto) 0.0 Baso # (Auto) 0.0 Nucleated RBC % (a uto) 0 Nucleated RBCs # 0.0 PT INR APTT Sodium 134 L Potassium 4.0 Chloride 100 Carbon Dioxide 26 Anion Gap 12.0 BUN 9 Creatinine 0.5 GFR Calculation Not Reportable Glucose 126 H POC Glucose Calculated Osmolal ity 278 L Lactate Calcium 8.5 Total Bilirubin 0.6 AST 17 ALT 19 Alkaline Phosphata se 60 Total Protein 5.9 L Albumin 2.7 L Globulin 3.2 Lipase Urine Color Yellow Urine Appearance Clear Urine pH 7 Ur Specific [place] 1.010 Urine Protein Neg Urine Glucose (UA) Norm Urine Ketones 1+ H Urine Blood 2+ H Urine Nitrate Negative Urine Bilirubin Neg Urine Urobilinogen Norm Ur Leukocyte [place] Negative Urine RBC 5-10 H Urine WBC Rare Ur Squamous Epith Cells None Amorphous Sediment Not Reportable Urine Bacteria Trace 12/17/20 12/17/20 12/17/20 10:49 14:31 19:59 WBC RBC Hgb Hct MCV MCH MCHC RDW Plt Count MPV Neut % (Auto) Lymph % (Auto) [place] % (Auto) Eos % (Auto) Baso % (Auto) Neut # (Auto) Lymph # (Auto) [place] # (Auto) Eos # (Auto) Baso # (Auto) Nucleated RBC % (a uto) Nucleated RBCs # PT 15.10 H INR 1.16 APTT 30.2 Sodium Potassium Chloride Carbon Dioxide Anion Gap BUN Creatinine GFR Calculation Glucose POC Glucose 118 H 132 H Calculated Osmolal ity Lactate Calcium Total Bilirubin AST ALT Alkaline Phosphata se Total Protein Albumin Globulin Lipase Urine Color Urine Appearance Urine pH Ur Specific [place] Urine Protein Urine Glucose (UA) Urine Ketones Urine Blood Urine Nitrate Urine Bilirubin Urine Urobilinogen Ur Leukocyte [place] a[place] Urine RBC Urine WBC Ur Squamous Epith Cells Amorphous Sediment Urine Bacteria 12/18/20 12/18/20 12/18/20 02:23 02:23 05:44 WBC 22.8 H RBC 4.44 Hgb 13.2 Hct 40.9 MCV 92.1 MCH 29.7 MCHC 32.3 RDW 13.2 Plt Count 192 MPV 11.5 H Neut % (Auto) 88.3 Lymph % (Auto) 5.4 [place] % (Auto) 5.6 Eos % (Auto) 0.0 Baso % (Auto) 0.2 Neut # (Auto) 20.15 H Lymph # (Auto) 1.2 [place] # (Auto) 1.3 H Eos # (Auto) 0.0 Baso # (Auto) 0.0 Nucleated RBC % (a uto) 0 Nucleated RBCs # 0.0 PT INR APTT Sodium 135 L Potassium 3.6 Chloride 101 Carbon Dioxide 27 Anion Gap 10.6 BUN 10 Creatinine 0.6 GFR Calculation Not Reportable Glucose 117 H POC Glucose 111 H Calculated Osmolal ity 280 L Lactate Calcium 8.0 L Total Bilirubin 0.8 AST 18 ALT 15 Alkaline Phosphata se 72 Total Protein 5.9 L Albumin 2.3 L Globulin 3.6 Lipase Urine Color Urine Appearance Urine pH Ur Specific [place] Urine Protein Urine Glucose (UA) Urine Ketones Urine Blood Urine Nitrate Urine Bilirubin Urine Urobilinogen Ur Leukocyte [place] a[place] Urine RBC Urine WBC Ur Squamous Epith Cells Amorphous Sediment Urine Bacteria Vitals: Temperature 98.6 F 12/18/20 08:57 Temperature Source Temporal Artery S can 12/18/20 08:57 Pulse Rate 94 12/18/20 08:57 Pulse Rhythm 12/17/20 20:00 Pulse Strength 3+ Normal 12/18/20 08:39 Respiratory Rate 18 12/18/20 08:57 Respiratory Effort Non-Labored 12/18/20 08:39 Respiratory Depth Normal 12/18/20 08:39 Respiratory Patter n 12/18/20 08:39 Blood Pressure 142/56 12/18/20 08:57 Blood Pressure Stephany n 84 12/18/20 08:57 Blood Pressure Pos ition Semi Fowlers 12/17/20 12:00 Pulse Oximetry 98 12/18/20 08:57 Oxygen Delivery Me thod 12/18/20 08:57 Oxygen Flow Rate 2 12/18/20 08:57 Sepsis New/Unexpla ined Change in Men evon Status No 12/16/20 15:31 Exam: Pre-Anes Outpt Exam: alert, oriented x 3, clear to auscultation bilaterally and regular rate & rhythm Cardiac Studies: No Data to Display
[2020-12-18] MEDS: acetaminophen 1,000 MG/100 ML PIGGYBACK 400 MG IV (09:39)
[2020-12-18] MEDS: sodium chloride 0.9% 1,000 ML 30 ML IV (09:56)
[2020-12-18] MEDS: heparin 5,000 unit/mL INJ 1 mL 3000 UNIT SUBCUT (10:03)
[2020-12-18] MEDS: lidocaine 2% INJ 20 mL INJECTION (13:16)
--- NOTE | 2020-12-18 14:00 | PC.NURSE ---
notified Dr Parra that patient has positive blood culture. 1 out of 2 positive with gram negative rods.
--- NOTE | 2020-12-18 14:04 | PC.NURSE ---
Drain is a pigtail catheter.
--- NOTE | 2020-12-18 14:12 | PM.OP ---
Operative Report Date of procedure: December 18, 2020 Pre-op Diagnosis: Symptomatic cholelithiasis Post-op diagnosis: other Post-op Diagnosis: Acute calculus cholecystitis with markedly enlarged liver, omental encasing of gallbladder Procedure Done: Laparoscopic cholecystostomy tube placement and intra-abdominal drain Implants: Pig tail catheter for cholecystostomy tube 15 Macedonian round Tahir drain Specimens removed/disposition: 50 mL of gallbladder purulent output Workday Consultant: Surgical techs Tyrese and Jared Circulating nurses Jammie and Magaly Anesthesia: General (GETA, CHIEF PAYROLL CLERK Ms. Fong and Will) Estimated blood loss (mL): 15 IV fluids (mL): 500 Findings: Remarkable enlargement of the liver Omental encasing of acutely inflamed gallbladder Condition: stable Disposition: floor Brief History: Acute cholecystitis Procedure: Patient was identified in the holding area and taken back to the operative suite, placed in supine position intubated by anesthesia . Time-out was done verifying the patient's name/date of /planned procedure and destination after the procedure, all were in agreement. SCDs confirmed to be functioning, preoperative antibiotics administered per protocol, and beta paula protocol was confirmed. Patient was appropriately secured to the table, footboard was applied to the OR table, before prep and drape anesthesia was asked to tilt the table back and forth to make sure that the patient is appropriately secured and she was. Prep and drape of the abdomen was done under the usual sterile technique, followed by that supraumbilical skin incision,skin incision was done by a 15 blade knife, and stay sutures were applied to the fascia and Sesay trocar technique was used to enter the abdominal without injuring any abdominal viscera, started by low flow gas insufflation followed by a high flow, started with a 10 mm laparoscope and under direct vision there was no evidence of any injuries, the scope then switched to a 30? ,10 millimeter scope and under direct visualization 5 millimeter trocar was inserted in the epigastric region followed by two 5 mm trocars were inserted in the right upper quadrant that was done after injection of local lidocaine 2% at all incision sites. Remarkable enlargement of the liver with omental encasing of acutely inflamed gallbladder Gallbladder showed acute calculus cholecystitis with extensive edema &with adhesions Patient was then positioned in the head up and tilted to the left Ratcheted forceps were introduced into the lateral most 5mm port and was applied unto the surrounding omentum and gentle peeling of the omentum to expose the fundus of the gallbladder as due to the patient's morbid obesity I was not able to have appropriate visualization to the remaining of the gallbladder. At this point the thought process is to convert to open versus placement of percutaneous laparoscopic guided cholecystostomy tube pigtail catheter. As I elected to use the latter, an aspiration needle was introduced under direct visualization and aspiration of about 40 to 50 mL of pus were drained from the gallbladder, that were sent for cultures and sensitivities following that using Seldinger technique I was able to place 10.5 Macedonian pigtail catheter under direct visualization and to leave with secured in the gallbladder. Copious and thorough irrigation was done at the perihepatic area and I elected to leave a 15 Macedonian round Tahir drain at the suprahepatic area, hemostasis was secured. And both drains were secured to the skin with 3-0 silk and nylon and were connected to draining bulbs. Final look laparoscopy showed no evidence of bleeding or injuries The supraumbilical fascial defect was then closed using interrupted 1 PDS sutures using a fascial closure device ;Kirk Villalobos under direct visualization Gas was allowed to deflate,Trocars were then taken out under direct vision there was no evidence of bleeding Specimen was passed to the circulating nurse for permanent pathology. The supraumbilical incision as well as all trocar sites were closed by skin anna.followed by dry dressing and drain dressing were applied as well. Patient patient got extubated and was taken to recovery area in a stable condition. Count of sponges,needles and instruments were completed at the end of the procedure I was present for the whole entire procedure.
--- NOTE | 2020-12-18 15:02 | SUR.PHASEI ---
PT ON 3LNC SATS 92-94% NO DISTRESS NOTED HOB AT 30 DEGREES PT ALERT ASKING IF SHE HAS A DRAIN, PT INFORMED SHE HAS 2 DRAINS AND TORI AND A PIGTAIL CATHETER TO DRAINAGE BAG.BOTH WITH SEROSANGUINOUS FLUID NOTED EMPTIED 60ML. PT ABD LARGE WITH 4 SITES D/I . VSS PT TAKING A COUPLE OF ICE CHIPS AND COUGING TO CLEAR THROAT
[2020-12-18 17:11] LABS: Glucose Point of Care 138 mg/dL (70-110)
[2020-12-18] MEDS: pantoprazole 40 mg SDV IVP (17:34)
[2020-12-18] MEDS: gabapentin 100 mg Capsule PO (17:34)
[2020-12-18] MEDS: morphine 4 mg/mL SDV 1 mL IVP (17:42)
[2020-12-18 20:51] LABS: Glucose Point of Care 131 mg/dL (70-110)
[2020-12-19] VITALS (10 sets, daily range): BP systolic 127–155; BP diastolic 69–82; PULSE 69–81; RESP 18; TEMP 36.5–37.3; O2SAT 92–925
[2020-12-19] MEDS: sodium chloride 0.9% 1,000 ML 100 ML IV ×2 (02:25→14:34)
[2020-12-19] MEDS: piperacillin-tazobactam 3.375 GM in sodium chloride 0.9% (plus) 100 ML IV ×3 (02:25→17:43)
[2020-12-19] MEDS: morphine 4 mg/mL SDV 1 mL IVP (02:26)
[2020-12-19 02:47] LABS: Hemoglobin 12.5 g/dL (11.5-15.3); Mean Corpuscular HGB Conc 31.3 g/dL (30.0-36.0); Mean Corpuscular Volume 95.9 fl (81-99); Mean Platelet Volume 11.6 fL (7.4-10.4); Platelet Count 185 10^3/cmm (130-400); Red Blood Count 4.17 10^6/uL (4.1-5.3); Red Cell Distribution Width 13.3 % (12.1-15.1)
[2020-12-19 03:37] LABS: Alanine Aminotransferase 16 U/L (0-33); Albumin Level 2.3 g/dL (3.5-5.2); Alkaline Phosphatase 61 IU/L (35-105); Anion Gap 9.9 (5-19); Aspartate Amino Transferase 14 U/L (0-32); Blood Urea Nitrogen 14 mg/dL (8-23); Calcium 8.4 mg/dL (8.5-10.5); Carbon Dioxide 28 mmol/L (22-29); Chloride 101 mmol/L (98-107); Globulin 3.8 g/dL (1.3-4.6); Glucose 120 mg/dL (65-115); Osmolality Calculated 282 mOsm/kg (285-295); Potassium 3.9 mmol/L (3.5-5.1); Sodium 135 mmol/L (136-145); Total Bilirubin 0.5 mg/dL (0.15-1.2); Total Protein 6.1 g/dL (6.6-8.7)
[2020-12-19 04:01] LABS: Absolute Segmented Neutrophil 16.2 10/cmm (1.6-7.1); Band Neutrophils Absolute 0.5 10^3/cmm (0.0-1.2); Segmented Neutrophils 90 %; Total Cells Counted 100 (0-100)
[2020-12-19 04:02] LABS: Absolute Neutrophil 16.7 10^3/cmm (1.4-6.5); Eosinophils 0 %; Lymphocytes 5 %; Lymphocytes Absolute 0.9 10^3/cmm (1.2-3.4); Monocytes Absolute 0.4 10^3/cmm (0.1-0.6); Platelet Estimate Normal (Normal)
[2020-12-19 06:11] LABS: Glucose Point of Care 106 mg/dL (70-110)
--- NOTE | 2020-12-19 06:26 | P.PN_ITS ---
Subjective Subjective: Interval history: Patient overall feels well yet confused, undergone a laparoscopic cholecystostomy tube placement in addition to intra- abdominal drain. Leukocytosis trending down to 18,000. Patient was found to have pus in her gallbladder, fluid was sent for cultures and sensitivities. Seems that the patient's confusion likely attributed to morphine IV. Per nursing staff assessment Medications: Reviewed: Yes Vitals/I&O/Wt Last Vital Signs Temp 98.6 F 12/19/20 04:00 Pulse 74 12/19/20 04:45 Resp 18 12/19/20 04:00 BP 133/80 12/19/20 04:00 Pulse Ox 93 12/19/20 04:00 12/18/20 12/18/20 12/19/20 14:59 22:59 06:59 Intake Total 751.667 / 512.209 9292.333 / 2300.000 965 / 3265.000 Output Total 225 / 240 Balance 736.667 / 149.832 2537.333 / 2285.000 740 / 3025.000 Physical Exam Narrative: EXAM NARRATIVE: Patient is conscious alert yet confused BMI 48.5 Head and neck examination PERRLA no masses no cervical lymphadenopathy no jaundice Cardiac examination audible S1-S2 no murmurs no gallops no arrhythmias Chest is clear bilateral,abscence of Rhonchi or wheezes,no surgical emphysema Abdomen nontender except at the DRAIN insertion sites,nondistended soft no organomegaly guarding or rigidity/no signs of peritonitis. Drains in place with sanguinous output Data : 12/19/20 02:12 12/19/20 02:12 Micro: Microbiology 12/18/20 13:45 Gram Stain - Final Gallbladder Fluid 12/16/20 17:22 Blood Culture - Preliminary Blood A&P Assessment and plan (1) Acute cholecystitis: Status post laparoscopic cholecystostomy tube placement 12/18/2020 will advance diet as tolerated DC morphine IV and replace with Tylenol p.o. Drain care and teaching Will follow on cultures and sensitivities Incentive spirometer every hour Mechanical DVT prophylaxis Continue Zosyn We will follow on a.m. labs Home health upon discharge for drain care Ayana patient's daughter was updated with patient's progress Assurance and education All questions have been answered and all concerns have been addressed to patient's satisfaction. Status: Acute Attestations Medical Necessity Statement*: Patient requiring inpatient hospitalization passing 2 midnights for parenteral antimicrobial therapy Time Spent in Patient Care: (>than 50% of time spent in counselling and/or direct pt care on unit) . Coding Level of Care Code Acute Card Punching Machine Operator for Alcides Gloria Diagnoses Acute cholecystitis K81.0
[2020-12-19] MEDS: gabapentin 100 mg Capsule PO ×2 (08:28→17:43)
[2020-12-19] MEDS: montelukast sodium 10 mg Tablet PO (08:28)
[2020-12-19] MEDS: buPROPion XL (24 HR) 150 mg Tablet PO (08:28)
[2020-12-19] MEDS: pantoprazole 40 mg SDV IVP ×2 (08:28→17:43)
[2020-12-19] MEDS: acetaminophen 325 mg Tablet 650 MG PO ×2 (10:13→16:41)
--- NOTE | 2020-12-19 10:35 | PC.SOCIAL ---
IMM Update Pg. 2 of IMM updated and reviewed with patient, who verbalized understanding. Copy provided. Initialed, dated, and timed copy in chart.
[2020-12-19 10:49] LABS: Glucose Point of Care 110 mg/dL (70-110)
[2020-12-19 17:29] LABS: Glucose Point of Care 119 mg/dL (70-110)
[2020-12-19 20:46] LABS: Glucose Point of Care 127 mg/dL (70-110)
[2020-12-20] VITALS (11 sets, daily range): BP systolic 134–163; BP diastolic 70–82; PULSE 72–86; RESP 17–19; TEMP 36.4–37.1; O2SAT 90–94
[2020-12-20] MEDS: piperacillin-tazobactam 3.375 GM in sodium chloride 0.9% (plus) 100 ML IV ×3 (03:12→18:17)
[2020-12-20 06:16] LABS: Basophils % 0.2 %; Eosinophils # 0.1 10^3/uL (0.0-0.8); Hematocrit 42.1 % (37.0-47.0); Hemoglobin 13.2 g/dL (11.5-15.3); Lymphocytes # 0.9 10^3/uL (0.8-4.8); Lymphocytes % 9.4 %; Mean Corpuscular HGB Conc 31.4 g/dL (30.0-36.0); Mean Corpuscular Hemoglobin 29.5 pg (28.0-34.0); Mean Corpuscular Volume 94.2 fl (81-99); Mean Platelet Volume 11.6 fL (7.4-10.4); Monocytes # 0.6 10^3/uL (0.2-0.9); Monocytes % 6.5 %; Neutrophils % 82.6 %; Nucleated Red Blood Cells % 0 %; Platelet Count 215 10^3/cmm (130-400); Red Blood Count 4.47 10^6/uL (4.1-5.3); Red Cell Distribution Width 13.2 % (12.1-15.1); White Blood Count 9.4 10^3/uL (4.0-10.0)
--- NOTE | 2020-12-20 06:23 | PM.PN ---
Subjective Subjective: Interval history: Patient overall feels well and passing gas and tolerating p.o. intake. Adequate urine output per nursing staff as patient is incontinent. Medications: Reviewed: Yes Vitals/I&O/Wt Last Vital Signs Temp 98.2 F 12/20/20 03:45 Pulse 73 12/20/20 03:45 Resp 18 12/20/20 03:45 BP 134/77 12/20/20 03:45 Pulse Ox 93 12/20/20 03:45 12/19/20 12/19/20 12/20/20 14:59 22:59 06:59 Intake Total 1920 / 1920 580 / 2500 1000 / 3500 Output Total 40 / 40 Balance 1880 / 1880 580 / 2460 1000 / 3460 Physical Exam Narrative: EXAM NARRATIVE: Patient is conscious alert yet confused BMI 48.5 Head and neck examination PERRLA no masses no cervical lymphadenopathy no jaundice Cardiac examination audible S1-S2 no murmurs no gallops no arrhythmias Chest is clear bilateral,abscence of Rhonchi or wheezes,no surgical emphysema Abdomen less tender at the drains insertion sites,nondistended soft no organomegaly guarding or rigidity/no signs of peritonitis. Drains in place with sero-sanguinous output Data : 12/20/20 06:00 12/19/20 02:12 Micro: Microbiology 12/18/20 13:45 Gram Stain - Final Gallbladder Fluid Body Fluid Culture - Preliminary A&P Assessment and plan (1) Acute cholecystitis: Status post laparoscopic cholecystostomy tube placement 12/18/2020 We will advance to soft GI diet and focus on protein shakes with each meal Continue drain care and teaching Will follow on cultures and sensitivities Incentive spirometer every hour Mechanical DVT prophylaxis Continue Zosyn We will follow on a.m. labs Home health upon discharge for drain care We will follow on the patient's clinical progress today with potential discharge home once we have home health set up and educate the patient about drain care and teaching. We will consult physical therapy for evaluation prior to discharge home Assurance and education All questions have been answered and all concerns have been addressed to patient's satisfaction. Status: Acute Attestations Medical Necessity Statement*: Patient requiring inpatient hospitalization passing 2 midnights for parenteral antimicrobial therapy Time Spent in Patient Care: (>than 50% of time spent in counselling and/or direct pt care on unit). Coding Level of Care Code Acute Bookkeeping Clerk for g Fwd Diagnoses Acute cholecystitis K81.0
[2020-12-20 06:36] LABS: Alanine Aminotransferase 17 U/L (0-33); Albumin Level 2.4 g/dL (3.5-5.2); Alkaline Phosphatase 64 IU/L (35-105); Anion Gap 11.4 (5-19); Aspartate Amino Transferase 15 U/L (0-32); Blood Urea Nitrogen 10 mg/dL (8-23); Calcium 8.4 mg/dL (8.5-10.5); Carbon Dioxide 28 mmol/L (22-29); Chloride 99 mmol/L (98-107); Globulin 4.2 g/dL (1.3-4.6); Glucose 121 mg/dL (65-115); Osmolality Calculated 280 mOsm/kg (285-295); Potassium 3.4 mmol/L (3.5-5.1); Sodium 135 mmol/L (136-145); Total Bilirubin 0.4 mg/dL (0.15-1.2); Total Protein 6.6 g/dL (6.6-8.7)
[2020-12-20 06:48] LABS: Glucose Point of Care 117 mg/dL (70-110)
[2020-12-20] MEDS: gabapentin 100 mg Capsule PO ×2 (08:19→18:18)
[2020-12-20] MEDS: acetaminophen 325 mg Tablet 650 MG PO ×2 (08:19→15:43)
[2020-12-20] MEDS: pantoprazole 40 mg SDV IVP ×2 (08:19→18:18)
[2020-12-20] MEDS: buPROPion XL (24 HR) 150 mg Tablet PO (08:19)
[2020-12-20] MEDS: montelukast sodium 10 mg Tablet PO (08:19)
[2020-12-20 10:51] LABS: Glucose Point of Care 118 mg/dL (70-110)
[2020-12-20] MEDS: hydroCHLOROthiazide 25 mg Tablet PO (12:32)
[2020-12-20 16:37] LABS: Glucose Point of Care 124 mg/dL (70-110)
[2020-12-20] MEDS: psyllium powder Pkt 1 PACKET PO (18:18)
[2020-12-20 20:24] LABS: Glucose Point of Care 115 mg/dL (70-110)
[2020-12-21] MEDS: piperacillin-tazobactam 3.375 GM in sodium chloride 0.9% (plus) 100 ML IV ×2 (03:16→12:31)
[2020-12-21 04:15] VITALS: BP 152/77; PULSE 80; RESP 20; TEMP 36.8; O2SAT 92
[2020-12-21 06:00] VITALS: PULSE 77
[2020-12-21 06:36] LABS: Glucose Point of Care 106 mg/dL (70-110)
[2020-12-21 07:41] VITALS: BP 167/82; PULSE 82; RESP 17; TEMP 36.7; O2SAT 92
--- NOTE | 2020-12-21 07:52 | PM.PN ---
Subjective Subjective: Interval history: Patient overall feels well and she did have a bowel movement and continues to pass gas. Evaluated by respiratory therapy to wean off O2 and evaluate the patient for potential requirements of oxygen at home, patient continues to have an adequate urine output. pain is under appropriate control Medications: Reviewed: Yes Vitals/I&O/Wt Last Vital Signs Temp 98.1 F 12/21/20 07:41 Pulse 82 12/21/20 07:41 Resp 17 12/21/20 07:41 BP 167/82 12/21/20 07:41 Pulse Ox 92 12/21/20 07:41 12/20/20 12/21/20 12/21/20 22:59 06:59 14:59 Intake Total 320 / 780 360 / 1140 100 / 100 Output Total 70 / 70 30 / 100 Balance 250 / 710 330 / 1040 100 / 100 Physical Exam Narrative: EXAM NARRATIVE: Patient is conscious alert yet confused BMI 48.5 Head and neck examination PERRLA no masses no cervical lymphadenopathy no jaundice Cardiac examination audible S1-S2 no murmurs no gallops no arrhythmias Chest is clear bilateral,abscence of Rhonchi or wheezes,no surgical emphysema Abdomen less tender at the drains insertion sites,nondistended soft no organomegaly guarding or rigidity/no signs of peritonitis. Drains in place with serous output Data : 12/20/20 06:00 12/20/20 06:00 Micro: Microbiology 12/16/20 17:22 Blood Culture - Preliminary Blood Gram Negative Rods 12/18/20 13:45 Gram Stain - Final Gallbladder Fluid Body Fluid Culture - Preliminary Gram Negative Rods A&P Assessment and plan (1) Acute cholecystitis: Status post laparoscopic cholecystostomy tube placement 12/18/2020 We will follow on RT recommendations Upon discharge encourage the patient to continue incentive spirometer every hour while awake Drain teaching and education with regard to flushing of the pigtail catheter only with 5 to 10 mL of saline or as needed on daily basis. Leave incisions open to air We will plan to send the patient on ciprofloxacin and Flagyl for 10 days Return to surgery office in 1 week Assurance and education All questions have been answered and all concerns have been addressed to patient's satisfaction. Status: Acute Attestations Medical Necessity Statement*: Patient requiring inpatient hospitalization passing 2 midnights for parenteral antimicrobial therapy and periprocedural care, also for home O2 evaluation. Time Spent in Patient Care: (>than 50% of time spent in counselling and/or direct pt care on unit). Coding Level of Care Code Acute Insurance Inspector for Alcides Gloria Diagnoses Acute cholecystitis K81.0
[2020-12-21] MEDS: gabapentin 100 mg Capsule PO (09:18)
[2020-12-21] MEDS: potassium chloride oral liq 20 mEq/15 mL UDC 40 MEQ PO (09:18)
[2020-12-21] MEDS: montelukast sodium 10 mg Tablet PO (09:18)
[2020-12-21] MEDS: pantoprazole 40 mg SDV IVP (09:18)
[2020-12-21] MEDS: hydroCHLOROthiazide 25 mg Tablet PO (09:18)
[2020-12-21] MEDS: buPROPion XL (24 HR) 150 mg Tablet PO (09:18)
[2020-12-21 11:46] VITALS: BP 133/83; PULSE 87; RESP 17; TEMP 36.8; O2SAT 92
[2020-12-21 12:13] LABS: Glucose Point of Care 124 mg/dL (70-110)
--- NOTE | 2020-12-21 14:40 | P.DS_ITS ---
Discharge Providers Date of Admission: 12/16/20 19:33 Date of Discharge: December 21, 2020 Attending Provider at Admission: Librado Parra MD Attending Provider at Discharge: Librado Parra MD Primary Care Provider: Pari Grijalva MD Diagnoses at Discharge Discharge Diagnosis (1) Acute cholecystitis: Status: Resolved Reason for Visit Reason for Visit: BURNING AND STINGING AND CHILLS/ACHES Hospital Course Hospital Course This is a pleasant 75 years old female patient presented to the hospital with worsening abdominal pain as she demonstrated ongoing acute calculus cholecystitis, patient required admission to surgical service, with the plan to obtain CT-guided cholecystostomy tube yet unfortunately that was not successful due to habitus of patient's body. The patient had elevated leukocytosis and in the presence of right upper quadrant abdominal pain. Decision was taken for laparoscopic cholecystectomy possible open. Yet upon entrance of the abdominal cavity it appears that the liver was remarkably enlarged which obscured the appropriate visualization for safe gallbladder surgery. And as the gallbladder was remarkably inflamed, I elected to place laparoscopic guided cholecystostomy tube and about 50 ml of fetid purulent discharge were revealed and that was sent for cultures and sensitivities, patient following that started to show trending down of leukocytosis still normal. Regained her appetite and was started on oral intake that tolerated well and started passing gas and having bowel movement. Maintained to have stable vital signs and was weaned off O2 and met the appropriate criteria for safe discharge to home with home health on board. Drain care and teaching and as well appropriate education was given to the patient with regard to drain care by the nursing staff, and based on cultures and sensitivities patient showed sensitivity to ciprofloxacin and she will be discharged also on Flagyl for 10 days course as she did have Klebsiella pneumoniae from the gallbladder content and gram-negative rods in her bloodstream 1 out of 2 bottles. She also maintained to have adequate urine output and physical therapy was consulted and evaluated the patient and deemed to be safe to be discharged and she would be able to walk independently with a walker. Return to surgery office in 1 week and return to primary care provider 1st available for medical optimization. Discharge Data Data Completed and Pending: Completed Studies During Hospitalization Category Date Time Status CT abdomen pelvis w con* 15804 Urge nt Cat Scan 12/16/20 16:[address] guided drainag e 94835 Routine Cat Scan 12/17/20 14:[address] head wo con* 7 0450 Urgent Cat Scan 12/16/20 16:17 Completed XR chest 1V nidia ble [id number] Urgent Exams 12/16/20 16:17 Completed US gall bladder 7 6705 Stat Ultrasound 12/17/20 12:22 Completed Pending at discharge Category Date Time Status Blood Culture Sta t Lab 12/16/20 17:22 Results Miscellaneous Milly t Stat Lab 12/16/20 15:35 Received Labs from last 24 hours 12/21/20 12/21/20 12/20/20 11:46 06:18 20:14 POC Glucose 124 H 106 115 H Misc Test Referenc e 12/20/20 12/16/20 16:20 15:35 POC Glucose 124 H Misc Test Referenc e Pending Vitals: Last Vital Signs Temp 98.2 F 12/21/20 11:46 Pulse 87 12/21/20 11:46 Resp 17 12/21/20 11:46 BP 133/83 12/21/20 11:46 Pulse Ox 92 12/21/20 11:46 Discharge Plan Discharge Patient Disposition: Home Condition: Stable Prescriptions: New Cipro 500 mg tablet 500 mg PO Q12H 10 Days Qty: 20 RF: 0 Flagyl 500 mg tablet 500 mg PO Q8H 10 Days Qty: 30 RF: 0 hydrocodone-acetaminophen 5-325 mg tablet 1 tab PO Q6H PRN (Reason: pain) Qty: 14 RF: 0 Continued triamterene-hydrochlorothiazid 37.5-25 mg tablet 1 tab PO DAILY RF: 0 atorvastatin [Lipitor] 10 mg tablet 10 mg PO DAILY MDD see pharmacy comment RF: 0 omeprazole 40 mg Capsule,Delayed Release(Dr/Ec) 40 mg PO DAILY RF: 0 montelukast 10 mg tablet 10 mg PO DAILY RF: 0 gabapentin 100 mg capsule 100 mg PO BID RF: 0 bupropion HCl [Wellbutrin XL] 150 mg tablet extended release 24 hr 150 mg PO DAILY RF: 0 Discharge Orders: Discharge Order (Routine); Ordered 12/21/20 Ordered By: Librado Parra Referrals: [facility] [Outside] Pari Grijalva MD [Primary Care Provider] - 12/25/20 10:15 am Librado Parra MD [Physician] - 12/27/20 1:30 pm (Return to surgery office in 1 week operating room surgical technologist) Discharge Diet: Advance as tolerated Discharge Activity: Limit activity as instructed and Use walker/crutches as instructed Patient Instructions: Opioid Safety Activity Restrictions/Additional Instructions: 1. Patient can shower after 48 hours from surgery 2. Education about drain care 3. Up and walking as tolerated 4. Do not lift more than 5 pounds first 2 weeks after surgery and not more than 25 pounds 6 to 8 weeks after surgery. 5. Do not operate heavy machinery or drive while using pain medications. 6.Contact the office or return to the ER for worsening nausea vomiting fevers or chills, or noticing any redness around incision sites or discharge. 7. Flush pigtail catheter daily with 5 to 10 mL of normal saline or as needed basis 8. Education about risk of fall 9. Focus on protein shakes 3 to 4 cans a day Discharge Attestations Time Spent in Discharge Care*: greater than 30 min Specific Discharge Activities: educating patient and educating and/or supporting family/caregiver Status at Discharge: Cognitive status at discharge: cognitively intact , Behavioral status at discharge: cooperative , Functional status at discharge: uses cane/walker Overall status at discharge: patient is progressing back to baseline Quality Metrics Clinical Quality Measures During this hospital stay, did patient experience: None Coding Level of Care Code Acute g VELASQUEZ FRYE note Diagnoses Acute cholecystitis K81.0
[2020-12-21 15:16] VITALS: BP 161/89; PULSE 86; RESP 18; TEMP 37.2; O2SAT 94
--- NOTE | 2020-12-26 13:51 | PC.SOCIAL ---
discharge follow up call made to patient. patient continues to have some pain but is taking hydrocodone and getting relief. Continues to take antibiotics. Patient has follow up appointments made and Jaqueline at home is seeing patient for home health.
== END 2020-12-21 15:53 | disposition home or self-care (01) | DRG 410 ==
LOC: ER 20:00 → MEDSURG 20:10
PROVIDERS: Emergency Medicine; Radiology Diagnostic Radiology; Surgery; Admitting Provider Surgery; Emergency Provider Emergency Medicine; PCP Family Medicine; Visit Provider Surgery
PROC: 0FT44ZZ Resection of Gallbladder, Percutaneous Endoscopic Approach (ICD-10-PCS; CPT 47562; principal; 2020-12-18 10:45)
DX: K80.00 Calculus of gallbladder with acute cholecystitis without obstruction (principal); I10 Essential (primary) hypertension; D72.829 Elevated white blood cell count, unspecified
CPT/HCPCS: 36415; 36416; 47490; 70450; 71045; 74177; 75989; 76705; 80053; 81001; 82962; 83605; 83690; 85007; 85025; 85027; 85610; 85730; 87040; 87070; 87075; 87077; 87186; 87205; 96361; 96365; 96372; 96375; 96376; 97116; 97161; 99285; C9113; J1100; J1644; J2270; J2370; J2405; J2543; J2704; J2710; J3010; J3490; J7030; J7040; Q9967

== ENCOUNTER → 2021-01-24 09:36 | Outpatient (BNVA) | payer MEDICARE, MEDICAID, SELFPAY | PROVIDERS: PCP Family Medicine; Visit Provider Surgery | DX: Z20.822 Contact with and (suspected) exposure to COVID-19 (principal); Z11.52 Encounter for screening for COVID-19 | CPT/HCPCS: 87635 ==

== ENCOUNTER → 2021-02-07 09:00 | Outpatient (BNVA) | payer MEDICARE, MEDICAID, SELFPAY | PROVIDERS: PCP Family Medicine; Visit Provider Nurse Practitioner Psychiatric/Mental Health | DX: F33.0 Major depressive disorder, recurrent, mild (principal) | CPT/HCPCS: 99214 ==

== ENCOUNTER → 2021-02-13 13:35 | Outpatient (BNVA) | payer MEDICARE, MEDICAID, SELFPAY | PROVIDERS: PCP Family Medicine; Visit Provider Surgery | DX: Z11.52 Encounter for screening for COVID-19 (principal); Z20.822 Contact with and (suspected) exposure to COVID-19 | CPT/HCPCS: 87635 ==

== ENCOUNTER 2021-02-18 05:59 | Day surgery (SDC) | payer MEDICARE, MEDICAID, SELFPAY ==
[2021-02-15 17:04] VITALS: BMI 43.7
[2021-02-18] VITALS (8 sets, daily range): BP systolic 117–179; BP diastolic 58–76; PULSE 74–98; RESP 14–27; TEMP 36.2–36.6; O2SAT 92–97
[2021-02-18] MEDS: sodium chloride 0.9% 1,000 ML 30 ML IV (06:15)
--- NOTE | 2021-02-18 06:15 | P.HP_ITS ---
Same Day Surgery H&P Indication for Procedure/HPI DATE OF PROCEDURE: February 18, 2021 CHIEF COMPLAINT/INDICATIONFOR SURGICAL PROCEDURE: Gall bladder issues PREOP DIAGNOSIS: Chronic cholecystitis PLANNED PROCEDRUE: Operation Date: 02/18/21 07:00 Proposed Procedures p Laparoscopic Cholecystectomy 84254 K81.9(Not Applicable) - Librado Parra MD This is a pleasant 75 years old female patient with history of symptomatic cholelithiasis. Patient had an acute episode and required placement of cholecystostomy tube via a diagnostic laparoscopy. And patient comes today for interval/elective cholecystectomy. She was placed on liquid protein diet for 10 days to downsize the volume of the liver to facilitate her surgery. She is down from 262 to 255 pounds ROS All systems have been reviewed negative except as per the above or per problem list Medications/Allergies* Home Medications Medication Instructions Recorded Confirmed Type atorvastatin 10 mg tablet 10 mg PO DAILY MDD see pharmacy 02/09/20 02/15/21 History comment triamterene 37.5 1 tab PO DAILY 02/09/20 02/15/21 History mg-hydrochlorothiazide 25 mg tablet gabapentin 100 mg PO BID 11/30/20 02/15/21 History montelukast 10 mg PO DAILY 11/30/20 02/15/21 History omeprazole 40 mg PO DAILY 11/30/20 02/15/21 History Allergies/Adverse Reactions Allergy/AdvReac Type Severity Reaction Status Date / Time No Known Allergies Allergy Verified 01/12/21 15:59 Pertinent History/Comorbid Conditions* Medical History (Updated 12/22/20 @ 00:01 by ) Acute cholecystitis due to biliary calculus HTN (hypertension) Major depressive disorder, recurrent, mild Social History Alcohol intake: never Pertinent Exam Findings alert, oriented x 3, clear to auscultation bilaterally, regular rate & rhythm and procedure specific exam findings (Abdominal examination nontender nondistended soft, obese) Cholecystostomy Tube in place at the right upper quadrant Recommendations Surgery/Procedure today (Laparoscopic cholecystectomy possible open) Other Plans: Plan of care; After thorough history physical examination and reviewing the chart and images with my personal intrepreatation.I counseled the patient for laparoscopic cholecystectomy possible open, indications risks including but not limited injury to the common bile duct and/or other viscera,that may require potential future surgical interventions including but not limited to ERCP and or laparatomy that may include Hepatobiliary surgery.Benefits and alternatives all discussed with the patient, and patient did agree to proceed accordingly. All questions have been answered and all concerns have been addressed to patient's satisfaction. Rationale was carefully and clearly discussed with the patient.Appropriate informed consent have been reviewed and signed. Coding Level of Care Code Acute Satellite Dish Installer for Alcides Gloria
[2021-02-18] MEDS: acetaminophen 1,000 MG/100 ML PIGGYBACK 400 MG IV (06:40)
[2021-02-18] MEDS: heparin 5,000 unit/mL INJ 1 mL 3000 UNIT SUBCUT (06:48)
--- NOTE | 2021-02-18 06:51 | ANES.PREANE2 ---
Pre-Anesthetic Assessment Pre-Anesthetic Assessment: Height/Weight: Height 1.63 m Weight 115.666 kg Temp Pulse Resp BP Pulse Ox 97.9 F 74 16 147/73 95 02/18/21 06:15 02/18/21 06:15 02/18/21 06:15 02/18/21 06:15 02/18/21 06:15 Preop Diagnosis: Symptomatic cholelithiasis Proposed Procedure: Operation Date: 02/18/21 07:00 Proposed Procedures p Laparoscopic Cholecystectomy 25094 K81.9(Not Applicable) - Librado Parra MD Was Beta Pierre taken within 24 hours: N/A Was Clonidine taken within 24 hours: N/A Last intake: Intake Last Liquid Date 02/17/21 Last Liquid Time 21:30 Last Solid Date 02/08/21 Last Solid Time 00:00 Social: Social History: No alcohol and No tobacco Exam: Pre-Anes Outpt Exam: alert, oriented x 3, clear to auscultation bilaterally and regular rate & rhythm Airway: Submandibular: WNL Cervical ROM: WNL MP: 2 Dentition: False GI: GI: GERD Metabolic: Metabolic: Hyperlipidemia and Morbid obesity Neuropsych: Neuropsych: Depression Anesthetic Plan: ASA status: 3 Anesthesia: General Risk of > 500 ml blood loss (7ml/kg in children): No PFSH Anesthesia PFSH: Medical History Acute cholecystitis due to biliary calculus HTN (hypertension) Major depressive disorder, recurrent, mild Social History Alcohol intake: never Data Anesthesia Cardiac Studies: No Data to Display
[2021-02-18] MEDS: ampicillin-sulbactam 3 GM in sodium chloride 0.9% (plus) 50 ML IV (06:55)
[2021-02-18] MEDS: lidocaine 2% INJ 20 mL INJECTION (07:29)
--- NOTE | 2021-02-18 09:09 | P.OP_ITS ---
Operative Report Date of procedure: February 18, 2021 Pre-op Diagnosis: Symptomatic cholelithiasis Post-op diagnosis: same (chronic calculus cholecystitis) Procedure Done: 1-Laparoscopic cholecystectomy 2-Laparoscopic explantation of cholecystostomy tube Specimens removed/disposition: Gallbladder and contents CholeCystostomy tube Surgeon: Librado Par[employer] Specialist: Surgical dahlia Burton Circulating nurse Eleonora Anesthesia: General (JEANMARIEA Dolores Brigitte) Estimated blood loss (mL): 50 IV fluids (mL): 1,000 Condition: stable Disposition: same day Brief History: Symptomatic cholelithiasis Procedure: Patient was identified in the holding area and taken back to the operative suite, placed in supine position intubated by anesthesia . Time-out was done verifying the patient's name/date of /planned procedure and destination after the procedure, all were in agreement. SCDs confirmed to be functioning, preoperative antibiotics administered per protocol, and beta paula protocol was confirmed. Patient was appropriately secured to the table, footboard was applied to the OR table, before prep and drape anesthesia was asked to tilt the table back and forth to make sure that the patient is appropriately secured and she was. Prep and drape of the abdomen was done under the usual sterile technique, followed by that supraumbilical skin incision,skin incision was done by a 15 blade knife, and stay sutures were applied to the fascia and Sesay trocar technique was used to enter the abdominal without injuring any abdominal viscera, started by low flow gas insufflation followed by a high flow, started with a 10 mm laparoscope and under direct vision there was no evidence of any injuries, the scope then switched to a 30? ,10 millimeter scope and under direct visualization 5 millimeter trocar was inserted in the epigastric region followed by two 5 mm trocars were inserted in the right upper quadrant that was done after injection of local lidocaine 2% at all incision sites. Gallbladder showed chronic calculus cholecystitis with extensive scarring and omental adhesions encompassing the cholecystostomy tube previously placed. Patient was then positioned in the head up and tilted to the left A 5 mm tenaculum forceps were introduced into the lateral most 5mm port and was applied unto the fundus of the gallbladder cephalad and using and another 5 mm tenaculum forceps at the infundibulum of the gallbladder was retracted laterally. Extensive scarring was noticed surrounding the whole gallbladder and omental adhesions were appreciated. The cholecystostomy tube at this point was cut and removed from the abdominal cavity in its entirety to allow better grasping onto the gallbladder. And allow appropriate countertraction LigaSure device was used to take the adhesions down and meticulous dissection using a combination between sharp and blunt dissection and more adhesions towards the first and second part of duodenum and careful dissection was obtained to free the gallbladder from the duodenum.following that further dissection of the peritoneum overlying the Calot's triangle was obtained, which was then opened medially and laterally until the cystic duct and the cystic artery were skeletonized. Dissection was carried along the body of the gallbladder and after ensuring critical view of safety was identfied. Cystic duct and cystic artery where seen connected to the gallbladder. Clips were applied on the cystic duct towards the common bile duct 1 towards the gallbladder then divided is in sharp scissors, 2 clips were then applied onto the cystic artery and 1 towards the gallbladder and divided by sharp scissors. The cystic duct noticed to be larger than the clip diameter so I elected to apply an Endoloop PDS under direct visualization to encircle the whole diameter of the duct. Additional traversing vessels were noticed and 5 mm clips were applied as well. Dissection was then carried along of the gallbladder from the gallbladder fossa using cautery as well as sharp dissection with heat energy. The gallbladder then was dissected out from the gallbladder fossa totally , cholecystectomy was then achieved and was placed in an Endo Catch bag and then retrieved from the Sesay trocar site under direct visualization using a 5 mm 30? scope through the epigastric trocar, specimen was then passed to the circulating nurse to go for permanent pathology,irrigation and hemostasis was done to the gallbladder fossa after hemostasis was secured, final survey laparoscopy was done that showed no injuries.Copious and extensive irrigation using 2 L of warm saline followed by suction was obtained Final look laparoscopy showed no bleeding or injuries, I elected to put pieces of Surgicel at the gallbladder fossa to secure hemostasis. The supraumbilical fascial defect was then closed using interrupted #1 PDS sutures using a fascial closure device ;Kirk Villalobos under direct visualization.Gas was allowed to deflate,Trocars were then taken out under direct vision there was no evidence of bleeding Specimen was passed to the circulating nurse for permanent pathology. No drains were placed and the supraumbilical incision as well as all trocar sites were closed by 3-0 Vicryl followed by skin anna to approximate the sk in edges of the supraumbilical incision, dressing was applied in the form of Band-Aid and the patient patient got extubated and was taken to recovery area in a stable condition. Count of sponges, needles and instruments were completed at the end of the procedure I was present for the whole entire procedure.
--- NOTE | 2021-02-18 09:46 | SUR.PHASEI ---
PT AWAKE ALERT ON RA TRIAL,PT TAKING OCC ICE CHIPS, VSS PT VERBALLY DENIES PAIN AND NAUSEA, WARM BLANKETS TO PT , DR RASMUSSEN AT BEDSIDE TALKING WITH PT.
[2021-02-18] MEDS: ondansetron 2 mg/ML SDV 2 mL 4 MG IVP (10:15)
[2021-02-18] MEDS: HYDROcodone-acetaminophen 5-325 mg Tablet 1 TAB PO (10:43)
--- NOTE | 2021-02-18 15:37 | ANE.PACU2 ---
Inpatient post-anesthesia follow up: Airway intact: Yes Vital signs: Temperature 97.3 F Pulse Rate 81 Respiratory Rate 18 Blood Pressure 117/65 Pulse Oximetry 92 Oxygen Delivery Me thod Room Air Oxygen Flow Rate 6 Fraction of Inspir ed Oxygen Hydration adequate: Yes Nausea and vomiting: No Pain level: 2 Mental status: Baseline
== END 2021-02-18 11:17 | disposition home or self-care (01) ==
PROVIDERS: PCP Family Medicine; Visit Provider Surgery
PROC: 0FT44ZZ Resection of Gallbladder, Percutaneous Endoscopic Approach (ICD-10-PCS; CPT 47562; principal; 2021-02-18 07:00)
DX: K80.10 Calculus of gallbladder with chronic cholecystitis without obstruction (principal); K21.9 Gastro-esophageal reflux disease without esophagitis; E78.5 Hyperlipidemia, unspecified; E66.01 Morbid (severe) obesity due to excess calories; Z68.41 Body mass index [BMI] 40.0-44.9, adult; I10 Essential (primary) hypertension; F33.9 Major depressive disorder, recurrent, unspecified
CPT/HCPCS: 47562; 88300; 88304; 96365; 96372; 96374; J0295; J0360; J1100; J1644; J2405; J2704; J2710; J3010; J3490; J7030

== ENCOUNTER → 2021-08-06 08:21 | Outpatient (BNVA) | payer MEDICARE, MEDICAID, SELFPAY | PROVIDERS: PCP Family Medicine; Visit Provider Nurse Practitioner Psychiatric/Mental Health | DX: F33.0 Major depressive disorder, recurrent, mild (principal) | CPT/HCPCS: 99214 ==

== ENCOUNTER 2022-02-25 12:25 | Outpatient (CLI) | payer MEDICARE, MEDICAID, SELFPAY ==
--- NOTE | 2022-02-25 12:34 | XR_ITS ---
WS: [id number] DEXA (DUAL ENERGY X-RAY ABSORPTIOMETRY) Bone mineral density was performed using a [employer] machine. HISTORY: POSTMENOPAUSAL COMPARISON: None available. Lumbar spine BMD (L1-L4): 1.356 g/cm2 T score: 1.5 Z score: 2.1 Total hip BMD: Left: 1.000 g/cm2. T score: -0.1 Z score: 0.8 Right: 0.989 g/cm2. T score: -0.1 Z score: 0.8 10 year probability of a major osteoporotic fracture is 8.3%. XR/XR DEXA axial skeleton* [id number] IMPRESSION: NORMAL BONE MINERAL DENSITY based upon the WHO classification for females.
== END 2022-02-25 12:26 | disposition home or self-care (01) ==
LOC: RAD 12:26
PROVIDERS: PCP Family Medicine; Visit Provider Nurse Practitioner Family
DX: Z78.0 Asymptomatic menopausal state (principal)
CPT/HCPCS: 77080

== ENCOUNTER 2022-03-14 11:37 | Outpatient (CLI) | payer MEDICARE, MEDICAID, SELFPAY ==
--- NOTE | 2022-03-14 11:48 | MM_ITS ---
WS: [email or web address] BILATERAL SCREENING DIGITAL TOMOSYNTHESIS MAMMOGRAM WITH CAD HISTORY: SCREENING COMPARISON: 2020 and 08/30/2018 Bilateral CC and MLO views with tomosynthesis and synthetic mammography submitted. Computer aided det ection analyzed. Breast composition: There are scattered areas of fibroglandular density. No suspicious masses, microc alcifications or architectural distortion. Benign calcifications in each breast. MM/[place] [id number] IMPRESSION: BI-RADS: 2-Benign FOLLOW UP: 1 Year Follow-up
== END 2022-03-14 11:38 | disposition home or self-care (01) ==
LOC: RAD 11:38
PROVIDERS: PCP Family Medicine; Visit Provider Nurse Practitioner Family
DX: Z12.31 Encounter for screening mammogram for malignant neoplasm of breast (principal)
CPT/HCPCS: 77063; 77067

== ENCOUNTER → 2022-07-17 10:50 | Outpatient (BNVA) | payer MEDICARE, MEDICAID, SELFPAY | PROVIDERS: PCP Family Medicine; Visit Provider Student in an Organized Health Care Education/Training Program | DX: M75.42 Impingement syndrome of left shoulder (principal) | CPT/HCPCS: 20526; 73130; 99204; J3301 ==

== ENCOUNTER → 2023-03-03 09:59 | Outpatient (BNVA) | payer MEDICARE, MEDICAID, OTHER, SELFPAY | PROVIDERS: PCP Family Medicine; Visit Provider Physician Assistant | DX: M17.11 Unilateral primary osteoarthritis, right knee | CPT/HCPCS: 20610; 73560; 73565; 99203 ==

== ENCOUNTER 2023-06-18 09:49 | Outpatient (CLI) | payer MEDICARE, MEDICAID, SELFPAY ==
--- NOTE | 2023-06-18 09:52 | MM_ITS ---
WS: [id number] BILATERAL 3D TOMOSYNTHESIS DIGITAL DIAGNOSTIC MAMMOGRAPHY WITH CAD CLINICAL INFORMATION: right breast lump HISTORY: RIGHT breast lump COMPARISON: 2021 TECHNIQUE: Bilateral CC, MLO, and ML views. FINDINGS: Scattered fibroglandular densities bilaterally. Incidental punctate and lucent centered calcification s. Palpable marker posterior depth RIGHT breast. No definite underlying parenchymal abnormalities. Ul trasound of this area is pending. LEFT breast is unremarkable and unchanged. ULTRASOUND BREAST RIGHT TECHNIQUE: Ultrasound right breast focused area of concern. CLINICAL INFORMATION: right breast lump FINDINGS: In the area of interest, at the 1 o'clock position, 10 cm from the nipple, there is a well-circumscri bed ovoid echogenic lesion measuring approximately 1.6 x 0.8 x 1.9 cm. This corresponds to the area o f palpable concern. This may represent an incidental benign lipoma or fibroadenolipoma but considerin g new palpable findings in a patient this age recommend further evaluation with ultrasound-guided bio psy. IMPRESSION: MM/[place] [id number] BI-RADS: 4-Suspicious Finding-Biopsy Should Be Considered FOLLOW UP: US Guided Biopsy Recommended
--- NOTE | 2023-06-18 10:28 | US_ITS ---
WS: [id number] BILATERAL 3D TOMOSYNTHESIS DIGITAL DIAGNOSTIC MAMMOGRAPHY WITH CAD CLINICAL INFORMATION: right breast lump HISTORY: RIGHT breast lump COMPARISON: 2021 TECHNIQUE: Bilateral CC, MLO, and ML views. FINDINGS: Scattered fibroglandular densities bilaterally. Incidental punctate and lucent centered calcification s. Palpable marker posterior depth RIGHT breast. No definite underlying parenchymal abnormalities. Ul trasound of this area is pending. LEFT breast is unremarkable and unchanged. ULTRASOUND BREAST RIGHT TECHNIQUE: Ultrasound right breast focused area of concern. CLINICAL INFORMATION: right breast lump FINDINGS: In the area of interest, at the 1 o'clock position, 10 cm from the nipple, there is a well-circumscri bed ovoid echogenic lesion measuring approximately 1.6 x 0.8 x 1.9 cm. This corresponds to the area o f palpable concern. This may represent an incidental benign lipoma or fibroadenolipoma but considerin g new palpable findings in a patient this age recommend further evaluation with ultrasound-guided bio psy. IMPRESSION: US/US breast RT limited* [id number] BI-RADS: 4-Suspicious Finding-Biopsy Should Be Considered FOLLOW UP: US Guided Biopsy Recommended
== END 2023-06-18 09:50 | disposition home or self-care (01) ==
LOC: RAD 09:49
PROVIDERS: PCP Family Medicine; Visit Provider Family Medicine
DX: N63.12 Unspecified lump in the right breast, upper inner quadrant (principal); R92.323 Mammographic fibroglandular density, bilateral breasts
CPT/HCPCS: 76642; 77062; G0279

== ENCOUNTER 2023-07-08 09:47 | Outpatient (CLI) | payer MEDICARE, MEDICAID, SELFPAY ==
--- NOTE | 2023-07-08 09:56 | US_ITS ---
WS: [id number] ULTRASOUND RIGHT BREAST HISTORY: MASS OF R BREAST COMPARISON: Prior mammogram 06/18/2023 and ultrasound. TECHNIQUE: 2-D and Doppler. There is a hyperechoic mass reidentified RIGHT breast at 1:00, 10 cm from the nipple. This is a benig n appearing mass which is ovoid in shape and consistent with a benign lipoma. No increased vascularit y. No biopsy will be performed today. I explained this in detail to the patient and has agreed to a 6 -month ultrasound follow-up. IMPRESSION: US/US breast RT limited* [id number] BI-RADS: 3-Probably Benign FOLLOW-UP: 6 Month Follow-up Instead of breast biopsy 6-month RIGHT breast ultrasound follow-up will be perf ormed as this mass is likely benign. Patient agrees to this plan.
== END 2023-07-08 09:48 | disposition home or self-care (01) ==
LOC: RAD 09:48
PROVIDERS: PCP Family Medicine; Visit Provider Family Medicine
DX: N63.12 Unspecified lump in the right breast, upper inner quadrant (principal)
CPT/HCPCS: 76642

== ENCOUNTER → 2023-09-01 11:45 | Outpatient (BNVA) | payer MEDICARE, MEDICAID, SELFPAY | PROVIDERS: PCP Family Medicine; Visit Provider Physician Assistant | DX: M19.041 Primary osteoarthritis, right hand; M19.042 Primary osteoarthritis, left hand | CPT/HCPCS: 73130; 99213 ==

== ENCOUNTER 2024-03-22 11:22 | Outpatient (CLI) | payer MEDICARE, MEDICAID, SELFPAY ==
--- NOTE | 2024-03-22 11:26 | US_ITS ---
WS: [id number] ULTRASOUND RIGHT BREAST HISTORY: Follow-up RIGHT breast mass. COMPARISON: 07/08/2023, 06/18/2023 TECHNIQUE: 2-D and Doppler. Hyperechoic mass in the RIGHT breast at 1:00, 10 cm from the nipple is reidentified. No increased vas cularity. Mass measures 1.8 x 0.8 x 2.2 cm and is similar in appearance to the prior examinations. Th ere is no increase in size. US/US breast RT limited* [id number] IMPRESSION: BI-RADS: 2- Benign FOLLOW-UP: See Report Recommend return to annual screening mammography. Hyperechoic mass is stable in the RIGHT breast consistent with a lipoma.
== END 2024-03-22 11:23 | disposition home or self-care (01) ==
LOC: RAD 11:24
PROVIDERS: PCP Family Medicine; Visit Provider Family Medicine
DX: N63.12 Unspecified lump in the right breast, upper inner quadrant (principal); R92.8 Other abnormal and inconclusive findings on diagnostic imaging of breast
CPT/HCPCS: 76642

== ENCOUNTER 2024-05-26 09:06 | Emergency (ER) | payer MEDICARE, MEDICAID, SELFPAY ==
[2024-05-26 09:35] VITALS: BP 113/55; PULSE 77; RESP 18; TEMP 36.7; O2SAT 93; BMI 47.2
[2024-05-26 09:38] VITALS: O2SAT 94
--- NOTE | 2024-05-26 10:03 | W.ED.URI ---
HPI - URI/Sore Throat General: Chief Complaint: Upper Respiratory Infection Stated Complaint: sore throat Time Seen by Provider: 05/26/24 09:38 Source: patient Mode of arrival: ambulatory Limitations: no limitations History of Present Illness: 78-year-old female who states she did have a sore throat along with painful swallowing has been going on for last 2 days. States pains been sharp in nature rates today 4 out of 10 currently she denies any fever denies any cough denies any vomiting. Related Data Home Medications Medication Instructions Recorded Confirmed atorvastatin 10 mg tablet (Lipitor) 10 mg PO DAILY 02/09/20 05/26/24 omeprazole 40 mg capsule,delayed 40 mg PO DAILY 11/30/20 05/26/24 release acetaminophen 500 mg tablet 1,000 mg PO Q6H PRN Fever Or Pain 05/26/24 05/26/24 fluticasone propionate 50 2 spray intranasal DAILY 05/26/24 05/26/24 mcg/actuation nasal spray,suspension furosemide 40 mg tablet 40 mg PO DAILY 05/26/24 05/26/24 hydrochlorothiazide 25 mg tablet 25 mg PO DAILY 05/26/24 05/26/24 levocetirizine 5 mg tablet 5 mg PO BEDTIME 05/26/24 05/26/24 nystatin 100,000 unit/gram topical 1 applic topical BID 05/26/24 05/26/24 powder (Klayesta) sulfamethoxazole 800 1 tab PO Q12H 05/26/24 05/26/24 mg-trimethoprim 160 mg tablet Previous Rx's Medication Instructions Recorded escitalopram oxalate 5 mg tablet 5 mg PO .morning #30 tabs 12/21/23 Allergies Allergy/AdvReac Type Severity Reaction Status Date / Time No Known Allergies Allergy Verified 12/21/23 13:28 REPLACED BY [facility] PFSH: Medical History Psychiatric care Acute cholecystitis Acute cholecystitis due to biliary calculus HTN (hypertension) Major depressive disorder, recurrent, mild Social History Smoking and tobacco/nicotine status: never used tobacco/nicotine Alcohol intake: never Physical Exam Const: COMMON NORMALS: no acute distress, patient oriented x3 and healthy appearing HENMT: COMMON NORMALS: normocephalic and atraumatic HEAD & SCALP: normocephalic and atraumatic THROAT: posterior oropharynx normal OTHER: No uvula deviation no neck swelling Eye: COMMON NORMALS: conjunctivae normal CONJUNCTIVA: Yes conjunctivae normal Neck/C-Spine: COMMON NORMALS: full ROM and supple Chest: COMMONS NORMALS: normal inspection of the chest Resp: COMMON NORMALS: normal respiratory effort, No retractions, No use of accessory muscles and clear to auscultation bilaterally AUSCULTATION: clear to auscultation bilaterally Cardio: COMMON NORMALS: regular rate RATE: regular rate Extremity: COMMON NORMALS: normal to inspection and full ROM Neuro: COMMON NORMALS: patient oriented x3, moves all extremities and no focal motor deficits Psych: COMMON NORMALS: mental status grossly normal, Normal thought process present and cooperative THOUGHT PROCESS: Normal thought process present Skin: COMMON NORMALS: no rashes or lesions noted and no wounds GENERAL SKIN EXAM: no rashes or lesions noted Course Vital Signs: Vital signs: Vital Signs Temperature 98.1 F 05/26/24 09:35 Pulse Rate 77 05/26/24 09:35 Respiratory Rate 18 05/26/24 09:35 Blood Pressure 113/55 05/26/24 09:35 Pulse Oximetry 94 05/26/24 09:38 Oxygen Delivery Me thod Room Air 05/26/24 09:38 MDM - URI/Sore Throat Medical Decision Making Patient presents here sore throat along with some painful swallowing could be slight esophagitis inform her she needs a follow-up with PCP if has ongoing pain likely needs a EGD in the future she is to take her omeprazole daily return if worsening she understands agrees to plan Medical Records I reviewed the patient's medical records. Lab Data I reviewed the patient's lab results. Laboratory Results Urine Color Yellow (Yellow) 05/26/24 10:42 Urine Appearance Clear (CLEAR) 05/26/24 10:42 Urine pH 7.5 (5-7) 05/26/24 10:42 Ur Specific [place] 1.019 (1.005-1.030) 05/26/24 10:42 Urine Protein Negative (Negative) 05/26/24 10:42 Urine Glucose (UA) Negative (Normal) 05/26/24 10:42 Urine Ketones Trace (Negative) 05/26/24 10:42 Urine Blood Negative (Negative) 05/26/24 10:42 Urine Nitrate Negative (Negative) 05/26/24 10:42 Urine Bilirubin Negative (Negative) 05/26/24 10:42 Urine Urobilinogen 2.0 mg/dL (Negative) H 05/26/24 10:42 Ur Leukocyte Esterase Trace (Negative) A 05/26/24 10:42 Urine RBC 6-10 /hpf (0-2) 05/26/24 10:42 Urine WBC 0-5 /hpf (0-5) 05/26/24 10:42 Ur Squamous Epith Cells 6-10 /hpf (0-5) 05/26/24 10:42 Amorphous Sediment Not Reportable 05/26/24 10:42 Urine Bacteria None seen /hpf (NONE) 05/26/24 10:42 Hyaline Casts 1.65 /lpf 05/26/24 10:42 Group A Strep Rapid Negative (Negative) 05/26/24 09:59 All radiology interpretation(s) finalized by discharge Discharge Plan Discharge Patient Disposition: Home Clinical Impression: Sore throat Condition: Stable Prescriptions: No Action escitalopram oxalate 5 mg tablet 5 mg PO .morning Qty: 30 6RF Rx Instructions: Take one tablet every morning atorvastatin [Lipitor] 10 mg tablet 10 mg PO DAILY omeprazole 40 mg Capsule,Delayed Release(Dr/Ec) 40 mg PO DAILY furosemide 40 mg Tablet 40 mg PO DAILY sulfamethoxazole-trimethoprim 800-160 mg tablet 1 tab PO Q12H nystatin [Klayesta] 100,000 unit/gram powder 1 applic TOPICAL BID fluticasone propionate 50 mcg/actuation spray,suspension 2 spray INTRANASAL DAILY levocetirizine 5 mg tablet 5 mg PO BEDTIME acetaminophen 500 mg Tablet 1,000 mg PO Q6H PRN (Reason: Fever Or Pain) hydrochlorothiazide 25 mg tablet 25 mg PO DAILY Discharge Orders: Discharge ED (Routine); Ordered 05/26/24 Ordered By: Magan Gavin Referrals: Pari Grijalva MD [Primary Care Provider] - 4-7 days Discharge Diet: Advance as tolerated Discharge Activity: Resume usual activity Patient Instructions: Sore Throat - Adult Coding Level of Care Code ED Loss Prevention Specialist for Christianag Juani
[2024-05-26 10:21] LABS: Rapid Strep A Test Negative (Negative)
[2024-05-26 10:53] LABS: Bilirubin Urine Negative (Negative); Blood Urine Negative (Negative); Glucose Urine UA Negative (Normal); Ketones Urine Trace (Negative); Leukocyte Esterase Urine Trace (Negative); Nitrate Urine Negative (Negative); Protein Urine Negative (Negative); Specific Gravity, Urine 1.019 (1.005-1.030); Urine Appearance Clear (CLEAR); Urine Color Yellow (Yellow); pH Urine 7.5 (5-7)
[2024-05-26 11:00] LABS: Add Urine Microscopic? YES; Bacteria Urine None Seen /hpf; Hyaline Casts Urine 1.65 /lpf; WBC Urine 0-5 /hpf (0-5)
[2024-05-26] MEDS: lidocaine 2% viscous 15 ML, aluminum-mag hydrox-simethicon 30 ML, sucralfate oral liq 1 GM PO (11:05)
[2024-05-26 11:07] LABS: UA Slide Review UA Slide Review Perf
[2024-05-26 11:10] LABS: Add Urine Culture? No
[2024-05-26 11:21] VITALS: BP 127/58; PULSE 88; O2SAT 95
== END 2024-05-26 11:23 | disposition home or self-care (01) ==
PROVIDERS: Emergency Provider Emergency Medicine; PCP Family Medicine
DX: J02.9 Acute pharyngitis, unspecified (principal); I10 Essential (primary) hypertension
CPT/HCPCS: 81001; 87081; 87880; 99283

== ENCOUNTER 2024-10-04 09:34 | Outpatient (CLI) | payer OTHER, MEDICAID, SELFPAY ==
--- NOTE | 2024-10-04 09:37 | MM_ITS ---
WS: [id number] BILATERAL 3D TOMOSYNTHESIS DIGITAL SCREENING MAMMOGRAPHY WITH CAD CLINICAL INFORMATION: SCREENING HISTORY: Screening mammogram. No current complaints. COMPARISON: 2023 TECHNIQUE: Bilateral CC and MLO views. FINDINGS: Scattered fibroglandular densities bilaterally. No suspicious focal mass, asymmetry, calcifications, or architectural distortion. No evidence of malignancy. Incidental punctate and lucent centered calcifications. Vascular calcification. MM/MM scr tomosynthesis [id number] IMPRESSION: DENSITY: There are scattered areas of fibroglandular density. BI-RADS: 2 - Benign. FOLLOW UP: 1 Year Follow-up Recommend return to annual screening mammography.
== END 2024-10-04 09:35 | disposition home or self-care (01) ==
LOC: RAD 09:36
PROVIDERS: PCP Family Medicine; Visit Provider Family Medicine
DX: Z12.31 Encounter for screening mammogram for malignant neoplasm of breast (principal); R92.323 Mammographic fibroglandular density, bilateral breasts; R92.1 Mammographic calcification found on diagnostic imaging of breast
CPT/HCPCS: 77063; 77067

== ENCOUNTER 2024-10-13 09:17 | Outpatient (CLI) | payer OTHER, MEDICAID, SELFPAY ==
--- NOTE | 2024-10-13 09:25 | MR_ITS ---
WS: [id number] MRI HEAD WITH CONTRAST WITH ATTENTION TO THE INTERNAL AUDITORY CANALS TECHNIQUE: Sagittal T1, T2 axial, T2 axial flair, axial susceptibility weighted imaging, axial diffusion weighted images, and coronal T2 images were obtained. Pre and post T1 axial and post T1 coronal images. ADC and FSPGR images. Post gadolinium images with attention to the internal auditory canals. Axial fiesta imaging. 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 FINDINGS: No evidence of restricted diffusion to suggest acute ischemia. Ventricular system and basal cisterns are patent. Mild small vessel changes. Moderate parenchymal volume loss worse in the parietal lobes. Small vessel changes in the roman. Small chronic lacunar infarct RIGHT cerebellum. Normal vascular flow voids at the skull base. No extra-axial fluid collections. Paranasal sinuses and mastoid air cells are well aerated. 4 mm punctate focus of hemosiderin in LEFT cerebellum.. Proximal 7th and 8th cranial nerves are normal in appearance. Normal trigeminal nerve root entry zones. No evidence of enhancing IAC or CP angle mass. No abnormal intracranial enhancement. Normal dural venous sinuses. MR/MR iac's wo/w con* [id number] IMPRESSION: 1. No evidence of restricted diffusion to suggest acute ischemia. 2. Mild small vessel changes with mild to moderate parenchymal volume loss wor se in the bilateral parietal lobes. 3. Paranasal sinuses and mastoid air cells are well aerated. 4. 4 mm punctate focus of hemosiderin in the LEFT cerebellum. 5. Proximal 7th and 8th cranial nerves are normal in appearance. No evidence o f enhancing IAC or CP angle mass.
[2024-10-13] MEDS: gadobenate dimeglumine 20 mL vial IV (10:21)
== END 2024-10-13 09:18 | disposition home or self-care (01) ==
PROVIDERS: PCP Family Medicine; Visit Provider Specialist
DX: H90.8 Mixed conductive and sensorineural hearing loss, unspecified (principal); R93.0 Abnormal findings on diagnostic imaging of skull and head, not elsewhere classified
CPT/HCPCS: 70553

== ENCOUNTER 2024-10-25 10:15 | Outpatient (CLI) | payer OTHER, MEDICAID, SELFPAY | END 2024-10-25 10:16 | disposition home or self-care (01) | LOC: RT 10:16 | PROVIDERS: PCP Family Medicine; Visit Provider Specialist | DX: R05.9 Cough, unspecified (principal) | CPT/HCPCS: 94010 ==